=== PATIENT | female | born 1980 | race Caucasian/White ===

== ENCOUNTER 2016-04-04 04:34 | Emergency (ER) | payer MEDICAID ==
[~2016-04-04] VITALS: Ht 160 cm; Wt 81.2 kg
[~2016-04-04 04:34] MED LIST: ACET-461 PO; ACHD5005 PO; AGM875T PO; ALBU17AE23 INH; ALBU2.5V52 INH; ALPR-557 PO; ALPR0.5T PO; AMIT100T2 PO; AMIT50TA3 PO; AZIT-21 PO; AZIT250T PO; BACL10TA PO; BCL10T PO; BENZ200C25 PO; BSP10T PO; BUDE6HFA INH; CLON0.5T25 PO; CLON1TAB36 PO; CLON2TAB16 PO; CPR500T PO; CYCL10TA9 PO; DEXT118L43 PO; DILT120C PO; DILT120T11 PO; DIPH50CA PO; DOCU100C37 PO; EPIN0.3P3 IM; FAMO-119 PO; GFN600TCR PO; HYDR-1231 PO; HYDR-3714 PO; HYDR-3816 PO; IBP600T1 PO; IBUP-1773 PO; LISI-552 PO; METF1000 PO; METH4TAB PO; METO10TA3 PO; METR500T PO; MMT17NA NSEACH; MNTL10T PO; MONT10TA24 PO; NITR-65 PO; OMEP40CA36 PO; ONDA8TAB9 PO; ONDN4T PO; OXYC-272 PO; PRD10T PO; PRD20T PO; PRED10TA PO; PROM25SU10 PR; PROM25SU10 RC; SERT100T8 PO; SERT50TA PO; SIME80TA16 PO; TIOT4MIS2 IH; TPR100T PO; TRAM50TA2 PO; Throat Lozenges MT; [UNRECOGNIZED DRUG - OTHER] PO
[2016-04-04] MEDS ORDERED: RT-ALBUTEROL SULF 2.5 MG/3 ML PRE-MIX VIAL ONE (04:36)
[2016-04-04] MEDS ORDERED: DEXAMETHASONE PF 10 MG/ML (DECADRON) VIAL ONE (04:36)
--- OUTSIDE RECORDS SUMMARY | 2016-04-04 04:40 | XMS REPORT | Continuity of Care Document ---
Author Author [facility] Organization [facility] Address Unknown Phone Unavailable Care Team Providers Care Physician Locums Urgent Care Name Role Phone PCP Unavailable Source Comments Some departments are not documenting in the electronic medical record. If you do not see the information that you expected, contact Release of Information in the Health Information Management department at [phone] for further assistance in locating additional records.[facility] Active Allergies and Adverse Reactions Allergen Noted Date Severity Reactions Comments Codeine 02/20/2015 Low PALPITATIONS Valium 02/20/2015 Medium RASH Current Medications Prescription Sig. Disp. Refills Start End Date Status Date metFORMIN (GLUCOPHAGE) Take 1,000 mg by mouth Active 1,000 mg tablet twice daily with meals. sertraline (ZOLOFT) 100 Take 100 mg by mouth at Active mg tablet bedtime daily. amitriptyline (ELAVIL) Take 100 mg by mouth at Active 100 mg tablet bedtime daily. diltiazem XR (DILTIA XT) Take 120 mg by mouth Active 120 mg capsule daily. montelukast (SINGULAIR) Take 10 mg by mouth Active 10 mg tablet daily. baclofen (LIORESAL) 10 mg Take 10 mg by mouth three Active tablet times daily. clonazePAM (KLONOPIN) 0.5 Take 0.5 mg by mouth Active mg tablet three times daily. budesonide/formoterol Inhale 2 Puffs by mouth Active (SYMBICORT) 160/4.5 mcg twice daily. HFAA inhalation azithromycin (ZITHROMAX) Take 250 mg by mouth Active 250 mg tablet daily. Z-SAWYER: Take 2 tabs by mouth on day 1, followed by 1 tab by mouth daily on days 2-5. PREDNISONE PO Take 40 mg by mouth. Active Active Problems Problem Noted Date Blurry vision, right eye 02/20/2015 Last Assessment & Plan: No shreya abnormalities noted reassured patient Social History Tobacco Use Types Packs/Day Years Used Date Never Smoker Smokeless Tobacco: Never Used Alcohol Use Drinks/Week oz/Week Comments Yes Rarely Last Filed Vital Signs Vital Sign Reading Time Taken Blood Pressure 168/118 02/20/2015 8:56 AM [employer] Pulse 91 02/20/2015 8:56 AM [employer] Temperature - - Respiratory Rate - - Height 1.6 m (5' 3") 02/20/2015 8:56 AM IN[employer]IATE Weight 76.204 kg (168 lb) 02/20/2015 8:56 AM IN[employer]ATIONS [employer]IATE Body Mass Index 29.77 02/20/2015 8:56 AM IN[employer]ATE Oxygen Saturation - - Plan of Care Health Maintenance Due Date Last Done Comments Physical (Comprehensive) 1988 Exam Pertussis Vaccine 1992 Tetanus Vaccine 1998 Cervical Cancer Screening 2002 Influenza Vaccine 11/29/2015 Results from Last 3 Months Not on file
[2016-04-04] MEDS ORDERED: RT-ALBUTEROL SULF 2.5 MG/3 ML PRE-MIX VIAL INH STA (04:42)
[2016-04-04] MEDS ORDERED: DEXAMETHASONE PF 10 MG/ML (DECADRON) VIAL INH STA (04:42)
--- NOTE | 2016-04-04 04:57 | ED Cough/URI ---
General Chief Complaint: Respiratory Problems Stated Complaint: SOA Source: patient Exam Limitations: no limitations History of Present Illness Time seen by provider: 04:37 Initial Comments Here with report of difficulty breathing. Patient has vocal cord dysfunction that sometimes comes on on its own. She states that she felt chest tightness tonight and had some stridor typical for her vocal cord dysfunction while she was at work. Usually she can take a Xanax and go to sleep and that solves the problem. Tonight she was at work when this happened and was unable to do that. She is hoping that we can help a little with the chest tightness and stridor so that she can get home and take her medicine. No report of recent illness. Timing/Duration: just prior to arrival, constant Severity/Quality: dry cough Prior Episodes/Possible Cause: occasional episodes Modifying Factors: Worse With Coughing Associated Symptoms: cough, shortness of breath Allergies and Home Medications Allergies Coded Allergies: diazepam (Unverified Allergy, Intermediate, rash, 01/03/15) codeine (Unverified Adverse Reaction, Intermediate, HEART PALPATATIONS, ) Home Medications 240 MG PO DAILY (Reported) 1 EA LOZG #30 1 EA MT Q3H PRN PRN SORE THROAT Prescribed by: DALTON MERINO on 06/14/15925 Albuterol 17 Gm Aerosol 2 PUFF INH Q4H PRN PRN SHORTNESS OF BREATH (Reported) Albuterol Sulfate 2.5 Mg/3 Ml Nebu 2.5 MG INH Q4H PRN PRN SHORTNESS OF BREATH ( Reported) Alprazolam 0.5 Mg Tab 0.5 MG PO Q4H PRN PRN ANXIETY (Reported) Amitriptyline Hcl 100 Mg Tablet 50 MG PO HS (Reported) take 1/2 of 100mg tab Baclofen 10 Mg Tab 10 MG PO TID (Reported) Budesonide/Formoterol Fumarate 1 Inhaler Aero 2 PUFF INH BID (Reported) Clonazepam 0.5 Mg Tab.rapdis 0.5 MG PO TID (Reported) Diphenhydramine Hcl 50 Mg Capsule 50 MG PO Q4H PRN PRN ALLERGIES (Reported) Docusate Sodium 100 Mg Capsule #40 100 MG PO BID PRN PRN CONSTIPATION Prescribed by: DALTON MERINO on 06/14/15925 Hydrocodone/Acetaminophen 1 Each Tablet #50 1-2 EA PO Q6H PRN PRN PAIN Prescribed by: DALTON MERINO on 06/14/15925 Ibuprofen 600 Mg Tablet #80 600 MG PO Q6H PRN PRN PAIN Prescribed by: DALTON MERINO on 06/14/15925 Lisinopril 20 Mg Tablet 20 MG PO DAILY (Reported) Metformin HCl 1,000 Mg Tablet 1,000 MG PO DAILY (Reported) Mometasone Furoate 17 Gm Naspr 2 SPRAYS NSEACH BID (Reported) Montelukast Sodium 10 Mg Tablet 10 MG PO HS (Reported) Prednisone 20 Mg Tab #6 40 MG PO DAILY Prescribed by: SHAWN JAIME on 09/17/15 1508 Sertraline Hcl 100 Mg Tablet 100 MG PO HS (Reported) Simethicone 80 Mg Tab.chew #40 40 MG PO TID PRN PRN INDIGESTION Prescribed by: DALTON MERINO on 06/14/15925 Tiotropium [place] 4 Gm Mist.inhal 1 PUFF IH DAILY (Reported) Constitutional: see HPINo chills, No fever EENTM: hoarseness see HPINo nose congestion Respiratory: see HPI cough short of breath stridor other (chest tightness) Cardiovascular: no symptoms reported Gastrointestinal: no symptoms reported Psychiatric/Neurological: See HPI AnxietyDenies Weakness Past Cbnoqvt-Dnnkxe-Ifxvmd Hx Patient Social History Alcohol Use: Denies Use Recreational Drug Use: No Smoking Status: Never a Smoker 2nd Hand Smoke Exposure: Yes Recent Foreign Travel: No Contact w/Someone Who Travel: No Recent Hopitalizations: No Immunizations Up To Date Tetanus Booster (TDap): Less than 5yrs PED Vaccines UTD: No Date of Pneumonia Vaccine: May 27, 2011 Date of Influenza Vaccine: Nov 28, 2014 Seasonal Allergies Seasonal Allergies: Yes Surgeries HX Surgeries: Yes (LEFT ACHILLES TENDON LENGTHENING X 2, LEFT TIBIA FX; HYST/ BSO 06/14/15) Surgeries: Appendectomy, Gallbladder, Hysterectomy, Oophorectomy, Orthopedic, Tubal Ligation Respiratory Hx Respiratory Disorders: Yes ("VOCAL CORD DYSFUNCTION") Respiratory Disorders: Asthma Cardiovascular Hx Cardiac Disorders: No Cardiac Disorders: Heart Murmur Neurological Hx Neurological Disorders: Yes (MIGRAINES WITH TIA SYMPTOMS) Neurological Disorders: Brain Tumor, Cerebral Palsy, Headaches /Migraines Reproductive System Hx Reproductive Disorders: No Sexually Transmitted Disease: No HIV/AIDS: No Female Reproductive Disorders: Denies SHINGLES ROOFER HELPER History: Hysterectomy, Tubal Ligation Genitourinary Hx Genitourinary Disorders: No Gastrointestinal Hx Gastrointestinal Disorders: Yes Gastrointestinal Disorders: Ulcer Musculoskeletal Hx Musculoskeletal Disorders: Yes (CEREBRAL PALSY) Endocrine Hx Endocrine Disorders: No (PRE-DIABETES) Endocrine Disorders: Diabetes, Non-Insulin dep HEENT HX ENT Disorders: Yes ("VOCAL CORD DYSFUNCTION") Hearing Impairment: Denies Cancer Hx Cancer: No Psychosocial Hx Psychiatric Problems: Yes Behavioral Health Disorders: Anxiety, Depression Integumentary HX Skin/Integumentary Disorder: No Blood Transfusions Hx Blood Disorders: No Adverse Reaction to a Blood Tr: No (has not ever had a transfusion) Family Medical History Significant Family History: Asthma, Cancer, Diabetes, Hypertension Family Medial History: Cancer 19 FATHER, Onset:60 years & older (Colon cancer) G8 SISTER, Onset:15's - 20 (Hksj1sw) G8 SISTER, Onset:15's - 20 (Cervical cancer) Cancer of colon 19 FATHER, Onset:60 years & older Cataract 19 FATHER, Onset:60 years & older 19 MOTHER, Onset:40's - 50 Family history: Arthritis 19 MOTHER, Onset:25's - 30 Family history: Asthma G8 SISTER, Onset:40's - 50 Family history: Cardiovascular disease 19 MOTHER, Onset:50's - 60 Family history: Diabetes mellitus 19 FATHER, Onset:60 years & older 19 MOTHER, Onset:40's - 50 G8 SISTER, Onset:15's - 20 Family history: Hypertension 19 FATHER, Onset:40's - 50 19 MOTHER, Onset:50's - 60 Hypercholesterolemia 19 FATHER, Onset:50's - 60 19 MOTHER, Onset:50's - 60 Physical Exam Vital Signs Capillary Refill : General Appearance: WD/WN no apparent distress HEENT: PERRL/EOMI pharynx normal Neck: full range of motion supple Respiratory: stridor (vocal cord dysfunction) inspiration other (lungs otherwise clear bilaterally) Cardiovascular: regular rate, rhythm no murmur Gastrointestinal: non tender soft Neurologic/Psychiatric: alert oriented x 3 Skin: normal color warm/dry Progress/Results/Core Measures Results/Orders My Orders Orders-MAHESH LUNDBERG MD Albuterol Pre-Mix Nebs (Rt) (Proventil P (04/04/16 04:42) Dexamethasone Pf Injection (Decadron Pf (04/04/16 04:42) Svn Sm Volume Nebulizer Rt-Rfs (04/04/16 04:42) Dexamethasone Pf Injection (Decadron Pf (04/04/16 04:36) Albuterol Pre-Mix Nebs (Rt) (Proventil P (04/04/16 04:36) Progress Note : Progress Note Seen and evaluated. Albuterol treatment and Decadron 10 mg inhaled per nebulizer treatment. 0454: Much better after treatments. States that she feels like she would feel a safely home and take her other medicines. Tolerating by mouth fluids without difficulty. Discharged home with return precautions. Patient verbalize understanding instructions and agreement with plan. Departure Impression Impression: Primary Impression: Vocal cord dysfunction Disposition: HOME, SELF-CARE Condition: Improved Departure-Patient Inst. Decision time for Depature: 04:57 Referrals: [facility] (PCP) Primary Care Physician GUILLE DELANEY DO (Family) Primary Care Physician Patient Instructions: Vocal Cord Dysfunction Add. Discharge Instructions: All discharge instructions reviewed with patient and/or family. Voiced understanding. Use painting exercises and calming measures to reduce vocal cord spasm and dysfunction. Take medicines as previously prescribed. Follow-up with your DrGhazala in a few days for recheck. Return for worse pain, fever, vomiting, weakness, breathing problems or other concerns as needed. MAHESH LUNDBERG MD Apr 04, 2016 04:57
[2016-04-04 05:02] VITALS: BP 130/99
== END 2016-04-04 05:02 | disposition home or self-care (01) ==
LOC: EDUNIT# 04:34 → ER 04:35
DX: J38.3 Other diseases of vocal cords (principal); R07.89 Other chest pain
CPT/HCPCS: 94640

== ENCOUNTER 2016-06-04 17:29 | Emergency (ER) | payer MEDICAID ==
[~2016-06-04] VITALS: Ht 160 cm; Wt 78.5 kg
[2016-06-04] MEDS ORDERED: diphenhydrAMINE 50 MG/ML INJ (BENADRYL) IV STA (17:37)
[2016-06-04] MEDS ORDERED: RT-SODIUM CHL INHALATION 3 ML VIAL IH ONE (17:45)
[2016-06-04 17:59] LABS: BASOPHILS % (AUTO) 0 % (0-10); EOSINOPHILS % (AUTO) 0 % (0-10); LYMPHOCYTES # (AUTO) 1.1 X 10^3 (1.0-4.0); LYMPHOCYTES % (AUTO) 7 % (12-44); MEAN CORPUSCULAR HEMOGLOBIN 30 PG (25-34); MEAN CORPUSCULAR HGB CONC 36 G/DL (32-36); MEAN CORPUSCULAR VOLUME 83 FL (80-99); MEAN PLATELET VOLUME 11.9 FL (7.4-10.4); MONOCYTES # (AUTO) 0.2 X 10^3 (0.0-1.0); MONOCYTES % (AUTO) 1 % (0-12); NEUTROPHILS % (AUTO) 91 % (42-75); PLATELET COUNT 183 10^3/uL (130-400); RED BLOOD COUNT 4.99 10^6/uL (4.35-5.85); RED CELL DISTRIBUTION WIDTH 12.8 % (10.0-14.5); WHITE BLOOD COUNT 15.3 10^3/uL (4.3-11.0)
[2016-06-04 18:15] LABS: ANION GAP 15 MMOL/L (5-14); BLOOD UREA NITROGEN 9 MG/DL (7-18); BUN/CREATININE RATIO 10; CALCIUM 10.1 MG/DL (8.5-10.1); CARBON DIOXIDE 17 MMOL/L (21-32); CHLORIDE 106 MMOL/L (98-107); CREATININE SERUM 0.87 MG/DL (0.60-1.30); GFR ESTIMATED > 60; GLUCOSE 275 MG/DL (70-105); POTASSIUM 3.4 MMOL/L (3.6-5.0); SODIUM 138 MMOL/L (135-145)
[2016-06-04 18:29] LABS: LYMPHOCYTES % (MANUAL) 8 %; NEUTROPHILS % (MANUAL) 89 %
[2016-06-04 18:30] LABS: REACTIVE LYMPHOCYTES 2 %
--- NOTE | 2016-06-04 18:41 | ED Respiratory ---
General Chief Complaint: Respiratory Problems Stated Complaint: SOA Nursing Triage Note: PT CO OF SOA, STATES STARTED YESTERDAY HAS HX ASTHMA Source: patient, old records History of Present Illness Time seen by provider: 17:29 Initial Comments PT ARRIVES VIA POV FROM HOME C/O SHORTNESS OF BREATH SINCE YESTERDAY--PT WITH DX OF ASTHMA AND "VOCAL CORD DYSFUNCTION" PT STATES SHE HAS BEEN USING DUO NEB TREATMENTS EVERY 4 HOURS AND ALBUTEROL TREATMENTS EVERY 2 HOURS WITHOUT IMPROVEMENT, SINCE YESTERDAY. LAST DUO NEB TREATMENT WAS AT 1630 TOOK PREDNISONE 60 MG AT 0900 HAD TEMP 100.9 AND TOOK ADVIL 400 MG AT 1615 PT STATES SHE IS NOT USING ANY OTHER INHALERS OR OTHER MEDICATIONS IN NEBULIZER , BESIDES ALBUTEROL AND DUO NEB PT STATES SHE STOPPED TAKING METFORMIN FOR DIABETES 6 MONTHS AGO, BECAUSE BLOOD SUGARS AND HGB A1C WERE DOWN IN NORMAL RANGE. STATES IT ONLY RUNS HIGH WHEN SHE IS ON PREDNISONE. STATES BLOOD SUGAR HAS BEEN "HIGH" ALL DAY TODAY PT STATES SHE STOPPED TAKING BP MEDICATION (LISINOPRIL) 2 MONTHS AGO, BECAUSE IT WAS DROPPING TOO LOW. STATES BP HAS BEEN RUNNING IN NORMAL RANGE SINCE THEN. STATES BP ONLY GOES UP WHEN SHE IS HAVING DIFFICULTY BREATHING [facility]HAS AN APPOINTMENT NEXT WEEK FOR ROUTINE FOLLOW UP INTENSIVE CARE MEDICINE SPECIALIST: DR. DELANEY--HAS AN APPOINTMENT ON Thursday06/06/16 FOR ROUTINE EXAM Allergies and Home Medications Allergies Coded Allergies: diazepam (Unverified Allergy, Intermediate, rash, 01/03/15) codeine (Unverified Adverse Reaction, Intermediate, HEART PALPATATIONS, ) Home Medications 240 MG PO DAILY (Reported) 1 EA LOZG #30 1 EA MT Q3H PRN PRN SORE THROAT Prescribed by: DALTON MERINO on 06/14/15 0926 Albuterol 17 Gm Aerosol 2 PUFF INH Q4H PRN PRN SHORTNESS OF BREATH (Reported) Albuterol Sulfate 2.5 Mg/3 Ml Nebu 2.5 MG INH Q4H PRN PRN SHORTNESS OF BREATH ( Reported) Alprazolam 0.5 Mg Tab 0.5 MG PO Q4H PRN PRN ANXIETY (Reported) Amitriptyline Hcl 100 Mg Tablet 50 MG PO HS (Reported) take 1/2 of 100mg tab Baclofen 10 Mg Tab 10 MG PO TID (Reported) Budesonide/Formoterol Fumarate 1 Inhaler Aero 2 PUFF INH BID (Reported) Clonazepam 0.5 Mg Tab.rapdis 0.5 MG PO TID (Reported) Diphenhydramine Hcl 50 Mg Capsule 50 MG PO Q4H PRN PRN ALLERGIES (Reported) Docusate Sodium 100 Mg Capsule #40 100 MG PO BID PRN PRN CONSTIPATION Prescribed by: DALTON MERINO on 06/14/15925 Doxycycline Monohydrate 100 Mg Capsule #20 100 MG PO BID Prescribed by: PLACIDO REYNOLDS on 06/04/16 1850 Hydrocodone/Acetaminophen 1 Each Tablet #50 1-2 EA PO Q6H PRN PRN PAIN Prescribed by: DALTON MERINO on 06/14/15925 Ibuprofen 600 Mg Tablet #80 600 MG PO Q6H PRN PRN PAIN Prescribed by: DALTON MERINO on 06/14/15925 Lisinopril 20 Mg Tablet 20 MG PO DAILY (Reported) Metformin HCl 1,000 Mg Tablet 1,000 MG PO DAILY (Reported) Mometasone Furoate 17 Gm Naspr 2 SPRAYS NSEACH BID (Reported) Montelukast Sodium 10 Mg Tablet 10 MG PO HS (Reported) Prednisone 20 Mg Tab #6 40 MG PO DAILY Prescribed by: SHAWN JAIME on 09/17/15 1508 Sertraline Hcl 100 Mg Tablet 100 MG PO HS (Reported) Simethicone 80 Mg Tab.chew #40 40 MG PO TID PRN PRN INDIGESTION Prescribed by: DALTON MERINO on 06/14/15925 Tiotropium [place] 4 Gm Mist.inhal 1 PUFF IH DAILY (Reported) Constitutional: see HPI fever EENTM: no symptoms reported Respiratory: see HPINo cough, short of breath Cardiovascular: chest pain (CHEST TIGHTNESS) Gastrointestinal: no symptoms reported Genitourinary: no symptoms reported Musculoskeletal: no symptoms reported Skin: no symptoms reported Psychiatric/Neurological: Anxiety Hematologic/Lymphatic: No Symptoms Reported Past Zychkrv-Bmyapl-Lddsxy Hx Patient Social History Alcohol Use: Denies Use Recreational Drug Use: No Smoking Status: Never a Smoker 2nd Hand Smoke Exposure: Yes Recent Foreign Travel: No Contact w/Someone Who Travel: No Recent Infectious Disease Expo: No Recent Hopitalizations: No Immunizations Up To Date Tetanus Booster (TDap): Less than 5yrs PED Vaccines UTD: No Date of Pneumonia Vaccine: May 27, 2011 Date of Influenza Vaccine: Nov 28, 2014 Seasonal Allergies Seasonal Allergies: Yes Surgeries HX Surgeries: Yes (LEFT ACHILLES TENDON LENGTHENING X 2, LEFT TIBIA FX; HYST/ BSO 06/14/15) Surgeries: Appendectomy, Gallbladder, Hysterectomy, Oophorectomy, Orthopedic, Tubal Ligation Respiratory Hx Respiratory Disorders: Yes ("VOCAL CORD DYSFUNCTION") Respiratory Disorders: Asthma Cardiovascular Hx Cardiac Disorders: No Cardiac Disorders: Heart Murmur Neurological Hx Neurological Disorders: Yes (MIGRAINES WITH TIA SYMPTOMS) Neurological Disorders: Brain Tumor, Cerebral Palsy, Headaches /Migraines Reproductive System Hx Reproductive Disorders: No Sexually Transmitted Disease: No HIV/AIDS: No DENTAL RESIDENT History: Hysterectomy, Tubal Ligation Genitourinary Hx Genitourinary Disorders: No Gastrointestinal Hx Gastrointestinal Disorders: Yes Gastrointestinal Disorders: Ulcer Musculoskeletal Hx Musculoskeletal Disorders: Yes (CEREBRAL PALSY) Endocrine Hx Endocrine Disorders: Yes ("PRE-DIABETES") Endocrine Disorders: Diabetes, Non-Insulin dep HEENT HX ENT Disorders: Yes ("VOCAL CORD DYSFUNCTION") Hearing Impairment: Denies Cancer Hx Cancer: No Psychosocial Hx Psychiatric Problems: Yes Behavioral Health Disorders: Anxiety, Depression Integumentary HX Skin/Integumentary Disorder: No Blood Transfusions Hx Blood Disorders: No Adverse Reaction to a Blood Tr: No (has not ever had a transfusion) Family Medical History Significant Family History: Asthma, Cancer, Diabetes, Hypertension Family Medial History: Cancer 19 FATHER, Onset:60 years & older (Colon cancer) G8 SISTER, Onset:15's - ([id number]) G8 SISTER, Onset:15's - 20 (Cervical cancer) Cancer of colon 19 FATHER, Onset:60 years & older Cataract 19 FATHER, Onset:60 years & older 19 MOTHER, Onset:40's - 50 Family history: Arthritis 19 MOTHER, Onset:25's - 30 Family history: Asthma G8 SISTER, Onset:40's - 50 Family history: Cardiovascular disease 19 MOTHER, Onset:50's - 60 Family history: Diabetes mellitus 19 FATHER, Onset:60 years & older 19 MOTHER, Onset:40's - 50 G8 SISTER, Onset:15's - 20 Family history: Hypertension 19 FATHER, Onset:40's - 50 19 MOTHER, Onset:50's - 60 Hypercholesterolemia 19 FATHER, Onset:50's - 60 19 MOTHER, Onset:50's - 60 No Family History of: Abdominal aortic aneurysm Mccormick's disease Alcoholism Aphasia Chest pain Congenital heart disease Congestive heart failure Cystic fibrosis Dementia Dysphagia Family history: Allergy Family history: Alzheimer's disease Family history: Breast disease Family history: Coronary thrombosis Family history: Gastrointestinal disease Family history: Glaucoma Family history: Osteoporosis Family history: Thyroid disorder Headache Hearing loss Heart disease Hereditary disease History of - anemia History of - disorder History of - respiratory disease History of drug abuse Human immunodeficiency virus (HIV) seropositivity Infertile Kidney disease Malignant neoplasm of lung Myocardial infarction Not obtainable due to adoption Parkinson's disease Prostate cancer Psychotic disorder Seizure disorder Stroke Tuberculosis Visual impairment Physical Exam Vital Signs Vital Sign - Last 12Hours 06/04/16 06/04/16 17:38 17:52 Temp 98.4 Pulse 123 Resp 36 B/P 174/135 Pulse Ox 98 Capillary Refill : Less Than 3 Seconds General Appearance: WD/WN other (VERY ANXIOUS, HYPERVENTILATING, TALKS NON- STOP IN FULL SENTENCES IN A NORMAL VOICE) HEENT: PERRL/EOMI Neck: normal inspection Respiratory: normal breath soundsNo decreased breath sounds, No rales, No rhonchi, No stridor, No wheezing, other (LUNGS FULLY AERATED BILATERALLY. NO WHEEZING OR UPPER AIRWAY NOISE NOTED. PT HYPERVENTILATING. ) Cardiovascular: normal peripheral pulses regular rate, rhythm no edema no murmur Gastrointestinal: soft Extremities: normal inspection no pedal edema normal capillary refill Neurologic/Psychiatric: field support rep II-XII nml as tested no motor/sensory deficits alert oriented x 3 other (ANXIOUS, HYPERVENTILATING) Skin: normal color warm/dry Progress/Results/Core Measures Results/Orders Lab Results Laboratory Tests Test 06/04/16 17:55 06/04/16 18:20 Range/Units Anion Gap 15 H 5-14 MMOL/L BUN/Creatinine Ratio 10 Basophils # (Auto) 0.0 0.0-0.1 10^3/uL Basophils (%) (Auto) 0 0-10 % Blood Morphology Comment NORMAL Blood Urea Nitrogen 9 7-18 MG/DL Calcium Level 10.1 8.5-10.1 MG/DL Carbon Dioxide Level 17 L 21-32 MMOL/L Chloride Level 106 98-107 MMOL/L Creatinine 0.87 0.60-1.30 MG/DL Eosinophils # (Auto) 0.0 0.0-0.3 10^3/uL Eosinophils (%) (Auto) 0 0-10 % Estimat Glomerular Filtration Rate > 60 Glucose Level 275 H 70-105 MG/DL Hematocrit 41 35-52 % Hemoglobin 14.8 11.5-16.0 G/DL Lymphocytes # (Auto) 1.1 1.0-4.0 X 10^3 Lymphocytes % (Manual) 8 % Lymphocytes (%) (Auto) 7 L 12-44 % Mean Corpuscular Hemoglobin 30 25-34 PG Mean Corpuscular Hemoglobin Concent 36 32-36 G/DL Mean Corpuscular Volume 83 80-99 FL Mean Platelet Volume 11.9 H 7.4-10.4 FL Monocytes # (Auto) 0.2 0.0-1.0 X 10^3 Monocytes % (Manual) 1 % Monocytes (%) (Auto) 1 0-12 % Neutrophils # (Auto) 14.0 H 1.8-7.8 X 10^3 Neutrophils % (Manual) 89 % Neutrophils (%) (Auto) 91 H 42-75 % Platelet Count 183 130-400 10^3/uL Potassium Level 3.4 L 3.6-5.0 MMOL/L Reactive Lymphocytes 2 % Red Blood Count 4.99 4.35-5.85 10^6/uL Red Cell Distribution Width 12.8 10.0-14.5 % Serum Test, Qualitative NEGATIVE NEGATIVE Sodium Level 138 135-145 MMOL/L White Blood Count 15.3 H 4.3-11.0 10^3/uL Ur Tricyclic Antidepressants Screen NEGATIVE NEGATIVE Urine Amphetamines Screen NEGATIVE NEGATIVE Urine Barbiturates Screen NEGATIVE NEGATIVE Urine Benzodiazepines Screen NEGATIVE NEGATIVE Urine Cannabinoids Screen NEGATIVE NEGATIVE Urine Cocaine Screen NEGATIVE NEGATIVE Urine Methadone Screen NEGATIVE NEGATIVE Urine Methamphetamines Screen NEGATIVE NEGATIVE Urine Opiates Screen NEGATIVE NEGATIVE Urine Oxycodone Screen NEGATIVE NEGATIVE Urine Phencyclidine Screen NEGATIVE NEGATIVE Urine Propoxyphene Screen NEGATIVE NEGATIVE My Orders Orders-PLACIDO REYNOLDS DO Basic Metabolic Panel (06/04/16 17:37) Cbc With Automated Diff (06/04/16 17:37) Drug Screen Stat (Urine) (06/04/16 17:37) Hcg,Qualitative Serum (06/04/16 17:37) Saline Lock/Iv-Start (06/04/16 17:37) Monitor-Rhythm Ecg Trace Only (06/04/16 17:37) Sodium Chl Inhalation (Rt-Sodium Chl Inh (06/04/16 17:45) Rt Request For Service (06/04/16 17:37) Diphenhydramine Injection (Benadryl Inje (06/04/16 17:37) Svn Sm Volume Nebulizer Rt-Rfs (06/04/16 17:37) Manual Differential (06/04/16 17:55) Lorazepam Injection (Ativan Injection) (06/04/16 18:45) Enalaprilat Injection (Vasotec Injection (06/04/16 18:45) Medications Given in ED Vital Signs/I&O Vital Sign - Last 12Hours 06/04/16 06/04/16 06/04/16 17:38 17:52 19:15 Temp 98.4 98.4 Pulse 123 103 Resp 36 22 B/P 174/135 Pulse Ox 98 95 Blood Pressure Mean: 148 Progress Note : Progress Note SYMPTOMS IMPROVED WITH SALINE NEB TREATMENT AND BENADRYL, AND IS RESTING QUIETLY WHEN STAFF NOT IN ROOM PT THEN BEGAN TO HYPERVENTILATE WHEN I ENTERED ROOM AGAIN, AND PT APPEARS TO BE STIFFENING ARM WHEN BP IS BEING TAKEN AND BP UP AGAIN TO 160/122 GIVEN VASOTEC AND ATIVAN BP DOWN TO 156/102 PRIOR TO DISMISSAL O2 SATS REMAINED STABLE DURING ER STAY Departure Impression Impression: Primary Impression: Bronchitis Additional Impressions: Hyperventilation History of asthma Uncontrolled hypertension Uncontrolled diabetes mellitus Disposition: 01 HOME, SELF-CARE Condition: Improved Departure-Patient Inst. Referrals: GUILLE DELANEY DO [facility] (PCP/Family) Primary Care Physician Patient Instructions: Asthma, Adult (DC), Diabetes Diet , Diabetes Exchange Diet, Diabetes Type 2 (DC), High Blood Pressure in Adults Add. Discharge Instructions: DO NOT USE YOUR NEBULIZER TREATMENTS MORE THAN EVERY 4 HOURS CONTINUE YOUR ZYRTEC AND SINGULAIR PRESCRIBED KEEP YOUR APPOINTMENT WITH DR. DELANEY ON THURSDAY AND KEEP YOUR APPOINTMENT WITH [facility] NEXT WEEK SCHEDULED. RETURN TO ER IF WORSE All discharge instructions reviewed with patient and/or family. Voiced understanding. Scripts Doxycycline Monohydrate 100 Mg [id number] Mg PO BID #20 CAP Prov:PLACIDO REYNOLDS DO 06/04/16 PLACIDO REYNOLDS DO Jun 04, 2016 18:41 Referrals: GUILLE DELANEY DO [facility] (PCP/Family) Primary Care Physician Patient Instructions: Asthma, Adult (DC), Diabetes Diet , Diabetes Exchange Diet, Diabetes Type 2 (DC), High Blood Pressure in Adults Add. Discharge Instructions: DO NOT USE YOUR NEBULIZER TREATMENTS MORE THAN EVERY 4 HOURS CONTINUE YOUR ZYRTEC AND SINGULAIR PRESCRIBED KEEP YOUR APPOINTMENT WITH DR. DELANEY ON THURSDAY AND KEEP YOUR APPOINTMENT WITH [facility] NEXT WEEK SCHEDULED. RETURN TO ER IF WORSE All discharge instructions reviewed with patient and/or family. Voiced understanding. Scripts Doxycycline Monohydrate 100 Mg [id number] Mg PO BID #20 CAP Prov:PLACIDO REYNOLDS DO 06/04/16 PLACIDO REYNOLDS DO Jun 04, 2016 18:41
[2016-06-04] MEDS ORDERED: LORazepam INJ 2 MG/ML (ATIVAN) VIAL IVP ONE (18:45)
[2016-06-04] MEDS ORDERED: ENALAPRILAT 2.5 MG/2 ML (VASOTEC) VIAL IV ONE (18:45)
[2016-06-04] MEDS ORDERED: CEFD300C3 PO (18:47)
[2016-06-04] MEDS ORDERED: DOXY100C42 PO (18:50)
[2016-06-04 19:15] VITALS: BP 158/102
== END 2016-06-04 19:15 | disposition home or self-care (01) ==
LOC: EDUNIT# 17:29 → ER 17:30
DX: J40 Bronchitis, not specified as acute or chronic (principal); R06.4 Hyperventilation; E11.65 Type 2 diabetes mellitus with hyperglycemia; I16.0 Hypertensive urgency; J45.909 Unspecified asthma, uncomplicated; F41.9 Anxiety disorder, unspecified; G80.9 Cerebral palsy, unspecified; Z79.899 Other long term (current) drug therapy
CPT/HCPCS: 36415; 80048; 80306; 84703; 85007; 85027; 93041; 94640; 96374; 96375

== ENCOUNTER 2016-09-09 10:17 | Observation (INO) | payer MEDICAID ==
[~2016-09-09] VITALS: Ht 160 cm; Wt 78.7 kg
[2016-09-09] VITALS (8 sets, daily range): BP systolic 129–165; BP diastolic 84–105
[~2016-09-09 10:17] MED LIST changes: +CEFD300C3 PO; +DOXY100C42 PO
[2016-09-09] MEDS ORDERED: NS IV 1000 ML 1,000 ML IV ONE (10:26)
[2016-09-09] MEDS ORDERED: LORazepam INJ 2 MG/ML (ATIVAN) VIAL IVP ONE (10:30)
[2016-09-09] MEDS ORDERED: RT-ALBUTEROL/IPRATROPIUM 3 ML (DUONEB) VIAL INH ONE ×2 (10:30→11:15)
[2016-09-09] MEDS ORDERED: methylPREDNISolone 125 MG (Solu-MEDROL) VIAL IVP ONE (10:30)
[2016-09-09 10:31] LABS: BASOPHILS % (AUTO) 0 % (0-10); EOSINOPHILS # (AUTO) 0.3 10^3/uL (0.0-0.3); EOSINOPHILS % (AUTO) 2 % (0-10); LYMPHOCYTES # (AUTO) 3.5 X 10^3 (1.0-4.0); LYMPHOCYTES % (AUTO) 32 % (12-44); MEAN CORPUSCULAR HEMOGLOBIN 29 PG (25-34); MEAN CORPUSCULAR HGB CONC 35 G/DL (32-36); MEAN CORPUSCULAR VOLUME 84 FL (80-99); MEAN PLATELET VOLUME 11.3 FL (7.4-10.4); MONOCYTES # (AUTO) 0.5 X 10^3 (0.0-1.0); MONOCYTES % (AUTO) 4 % (0-12); NEUTROPHILS # (AUTO) 6.7 X 10^3 (1.8-7.8); NEUTROPHILS % (AUTO) 61 % (42-75); PLATELET COUNT 191 10^3/uL (130-400); RED BLOOD COUNT 5.03 10^6/uL (4.35-5.85); RED CELL DISTRIBUTION WIDTH 12.6 % (10.0-14.5)
[2016-09-09 10:52] LABS: ANION GAP 11 MMOL/L (5-14); BLOOD UREA NITROGEN 6 MG/DL (7-18); BUN/CREATININE RATIO 8 (0-20); CALCIUM 9.8 MG/DL (8.5-10.1); CARBON DIOXIDE 22 MMOL/L (21-32); CHLORIDE 106 MMOL/L (98-107); CREATININE SERUM 0.78 MG/DL (0.60-1.30); GFR ESTIMATED > 60; GLUCOSE 192 MG/DL (70-105); POTASSIUM 3.4 MMOL/L (3.6-5.0); SODIUM 139 MMOL/L (135-145)
--- NOTE | 2016-09-09 11:04 | Diagnostic Imaging Report ---
EXAMINATION: Portable upright radiograph of the chest. INDICATION: Shortness of breath. FINDINGS: The lungs are clear. The heart size is normal. No effusion or pneumothorax. The mediastinum and eric appear unremarkable. IMPRESSION: Unremarkable exam. Dictated by: Dictated on workstation # [id number]
[2016-09-09] MEDS ORDERED: diphenhydrAMINE 50 MG/ML INJ (BENADRYL) IVP ONE (11:15)
--- NOTE | 2016-09-09 11:55 | ED Respiratory ---
General Chief Complaint: Respiratory Problems Stated Complaint: ASTHMA,SOA Nursing Triage Note: PT C/O SOA AND WHEEZING ONSET THIS AM. Source: patient Exam Limitations: no limitations History of Present Illness Time seen by provider: 10:21 Initial Comments This 36-year-old woman with significant asthma presents to the emergency room with acute exacerbation. She reports being exposed to cigarette smoke [place] the drive[place]in theater 2 nights ago. She then accidentally sprayed some air freshener near her face today. She believes the combination of these exposures has caused a severe exacerbation. She has very tight wheezing upon arrival. She also has a component of vocal cord dysfunction. She has taken 2 DuoNeb treatments at home this morning but they do not last long. She has appointment with Dr. Alvarado later this week but felt she could not wait. Allergies and Home Medications Allergies Coded Allergies: diazepam (Unverified Allergy, Intermediate, rash, 01/03/15) codeine (Unverified Adverse Reaction, Intermediate, HEART PALPATATIONS, ) Home Medications Albuterol 17 Gm Aerosol, 2 PUFF INH Q4H PRN for SHORTNESS OF BREATH, (Reported) Albuterol Sulfate 2.5 Mg/3 Ml Nebu, 2.5 MG INH Q4H PRN for SHORTNESS OF BREATH, (Reported) Alprazolam 0.5 Mg Tab, 0.5 MG PO Q4H PRN for ANXIETY, (Reported) Amitriptyline Hcl 100 Mg Tablet, 50 MG PO HS, (Reported) take 1/2 of 100mg tab Baclofen 10 Mg Tab, 10 MG PO TID, (Reported) Budesonide/Formoterol Fumarate 1 Inhaler Aero, 2 PUFF INH BID, (Reported) Clonazepam 0.5 Mg Tab.rapdis, 0.5 MG PO TID, (Reported) Diphenhydramine Hcl 50 Mg Capsule, 50 MG PO Q4H PRN for ALLERGIES, (Reported) Docusate Sodium 100 Mg Capsule, 100 MG PO BID PRN for CONSTIPATION, #40 Prescribed by: DALTON MERINO on 06/14/15 0926 Doxycycline Monohydrate 100 Mg Capsule, 100 MG PO BID, #20 Prescribed by: PLACIDO REYNOLDS on 06/04/16 1850 Hydrocodone/Acetaminophen 1 Each Tablet, 1-2 EA PO Q6H PRN for PAIN, #50 Prescribed by: DALTON MERINO on 06/14/15925 Ibuprofen 600 Mg Tablet, 600 MG PO Q6H PRN for PAIN, #80 Prescribed by: DALTON MERINO on 06/14/15925 Lisinopril 20 Mg Tablet, 20 MG PO DAILY, (Reported) Metformin HCl 1,000 Mg Tablet, 1,000 MG PO DAILY, (Reported) Mometasone Furoate 17 Gm Naspr, 2 SPRAYS NSEACH BID, (Reported) Montelukast Sodium 10 Mg Tablet, 10 MG PO HS, (Reported) Prednisone 20 Mg Tab, 40 MG PO DAILY, #6 Prescribed by: SHAWN JAIME on 09/17/15 1508 Sertraline Hcl 100 Mg Tablet, 100 MG PO HS, (Reported) Simethicone 80 Mg Tab.chew, 40 MG PO TID PRN for INDIGESTION, #40 Prescribed by: DALTON MERINO on 06/14/15925 Tiotropium [place] 4 Gm Mist.inhal, 1 PUFF IH DAILY, (Reported) [Tazaic] , 240 MG PO DAILY, (Reported) [Throat Lozenges] 1 EA LOZG, 1 EA MT Q3H PRN for SORE THROAT, #30 Prescribed by: DALTON MERINO on 06/14/15925 Constitutional: no symptoms reported EENTM: see HPI Respiratory: see HPI Cardiovascular: no symptoms reported Gastrointestinal: no symptoms reported Genitourinary: no symptoms reported Musculoskeletal: no symptoms reported Skin: no symptoms reported Psychiatric/Neurological: No Symptoms Reported Hematologic/Lymphatic: No Symptoms Reported Past Jcwycut-Accpyt-Cnimvm Hx Patient Social History Alcohol Use: Denies Use Recreational Drug Use: No Smoking Status: Never a Smoker 2nd Hand Smoke Exposure: Yes Recent Foreign Travel: No Contact w/Someone Who Travel: No Recent Infectious Disease Expo: No Recent Hopitalizations: No Immunizations Up To Date Tetanus Booster (TDap): Less than 5yrs PED Vaccines UTD: No Date of Pneumonia Vaccine: May 27, 2011 Date of Influenza Vaccine: Nov 28, 2014 Seasonal Allergies Seasonal Allergies: Yes Surgeries HX Surgeries: Yes (LEFT ACHILLES TENDON LENGTHENING X 2, LEFT TIBIA FX; HYST/ BSO 06/14/15) Surgeries: Appendectomy, Gallbladder, Hysterectomy, Oophorectomy, Orthopedic, Tubal Ligation Respiratory Hx Respiratory Disorders: Yes ("VOCAL CORD DYSFUNCTION") Respiratory Disorders: Asthma Cardiovascular Hx Cardiac Disorders: No Cardiac Disorders: Heart Murmur Neurological Hx Neurological Disorders: Yes (MIGRAINES WITH TIA SYMPTOMS) Neurological Disorders: Brain Tumor, Cerebral Palsy, Headaches /Migraines Reproductive System Hx Reproductive Disorders: No Sexually Transmitted Disease: No HIV/AIDS: No Female 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, Tubal Ligation Genitourinary Hx Genitourinary Disorders: No Gastrointestinal Hx Gastrointestinal Disorders: Yes Gastrointestinal Disorders: Ulcer Musculoskeletal Hx Musculoskeletal Disorders: Yes (CEREBRAL PALSY) Endocrine Hx Endocrine Disorders: Yes ("PRE-DIABETES") Endocrine Disorders: Diabetes, Non-Insulin dep HEENT HX ENT Disorders: Yes ("VOCAL CORD DYSFUNCTION") Hearing Impairment: Denies Cancer Hx Cancer: No Psychosocial Hx Psychiatric Problems: Yes Behavioral Health Disorders: Anxiety, Depression Integumentary HX Skin/Integumentary Disorder: No Blood Transfusions Hx Blood Disorders: No Adverse Reaction to a Blood Tr: No (has not ever had a transfusion) Family Medical History Significant Family History: Asthma, Cancer, Diabetes, Hypertension Family Medial History: Cancer 19 FATHER, Onset:60 years & older (Colon cancer) G8 SISTER, Onset:15's - 20 ([id number]) G8 SISTER, Onset:15's - 20 (Cervical cancer) Cancer of colon 19 FATHER, Onset:60 years & older Cataract 19 FATHER, Onset:60 years & older 19 MOTHER, Onset:40's - 50 Family history: Arthritis 19 MOTHER, Onset:25's - 30 Family history: Asthma G8 SISTER, Onset:40's - 50 Family history: Cardiovascular disease 19 MOTHER, Onset:50's - 60 Family history: Diabetes mellitus 19 FATHER, Onset:60 years & older 19 MOTHER, Onset:40's - 50 G8 SISTER, Onset:15's - 20 Family history: Hypertension 19 FATHER, Onset:40's - 50 19 MOTHER, Onset:50's - 60 Hypercholesterolemia 19 FATHER, Onset:50's - 60 19 MOTHER, Onset:50's - 60 No Family History of: Abdominal aortic aneurysm Raymond's disease Alcoholism Aphasia Chest pain Congenital heart disease Congestive heart failure Cystic fibrosis Dementia Dysphagia Family history: Allergy Family history: Alzheimer's disease Family history: Breast disease Family history: Coronary thrombosis Family history: Gastrointestinal disease Family history: Glaucoma Family history: Osteoporosis Family history: Thyroid disorder Headache Hearing loss Heart disease Hereditary disease History of - anemia History of - disorder History of - respiratory disease History of drug abuse Human immunodeficiency virus (HIV) seropositivity Infertile Kidney disease Malignant neoplasm of lung Myocardial infarction Not obtainable due to adoption Parkinson's disease Prostate cancer Psychotic disorder Seizure disorder Stroke Tuberculosis Visual impairment Physical Exam Vital Signs Vital Sign - Last 12Hours 09/09/16 09/09/16 10:20 10:35 Temp 97.6 Pulse 113 Resp 30 B/P (MAP) 157/90 Pulse Ox 98 O2 Delivery Room Air O2 Flow Rate 3.00 Capillary Refill : Less Than 3 Seconds General Appearance: WD/WN, mild distress HEENT: PERRL/EOMI, normal ENT inspection Neck: normal inspection Respiratory: no respiratory distress, no accessory muscle use, wheezing (tight) Cardiovascular: no edema, no murmur, tachycardia Gastrointestinal: non tender, soft Extremities: normal inspection, no pedal edema, no calf tenderness, other ( negative Bryon) 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, no motor/sensory deficits, alert, oriented x 3, other (mildly anxious) Skin: normal color, warm/dry Progress/Results/Core Measures Results/Orders Lab Results Laboratory Tests Test 09/09/16 10:25 Range/Units White Blood Count 11.0 4.3-11.0 10^3/uL Red Blood Count 5.03 4.35-5.85 10^6/uL Hemoglobin 14.6 11.5-16.0 G/DL Hematocrit 42 35-52 % Mean Corpuscular Volume 84 80-99 FL Mean Corpuscular Hemoglobin 29 25-34 PG Mean Corpuscular Hemoglobin Concent 35 32-36 G/DL Red Cell Distribution Width 12.6 10.0-14.5 % Platelet Count 191 130-400 10^3/uL Mean Platelet Volume 11.3 H 7.4-10.4 FL Neutrophils (%) (Auto) 61 42-75 % Lymphocytes (%) (Auto) 32 12-44 % Monocytes (%) (Auto) 4 0-12 % Eosinophils (%) (Auto) 2 0-10 % Basophils (%) (Auto) 0 0-10 % Neutrophils # (Auto) 6.7 1.8-7.8 X 10^3 Lymphocytes # (Auto) 3.5 1.0-4.0 X 10^3 Monocytes # (Auto) 0.5 0.0-1.0 X 10^3 Eosinophils # (Auto) 0.3 0.0-0.3 10^3/uL Basophils # (Auto) 0.0 0.0-0.1 10^3/uL Sodium Level 139 135-145 MMOL/L Potassium Level 3.4 L 3.6-5.0 MMOL/L Chloride Level 106 98-107 MMOL/L Carbon Dioxide Level 22 21-32 MMOL/L Anion Gap 11 5-14 MMOL/L Blood Urea Nitrogen 6 L 7-18 MG/DL Creatinine 0.78 0.60-1.30 MG/DL Estimat Glomerular Filtration Rate > 60 BUN/Creatinine Ratio 8 0-20 Glucose Level 192 H 70-105 MG/DL Calcium Level 9.8 8.5-10.1 MG/DL My Orders Orders - DERRICK TRIANA MD Basic Metabolic Panel (09/09/16 10:23) Cbc With Automated Diff (09/09/16 10:23) Saline Lock/Iv-Start (09/09/16 10:23) O2 (09/09/16 10:23) Monitor-Rhythm Ecg Trace Only (09/09/16 10:23) Chest 1 View, Ap/Pa Only (09/09/16 10:23) Methylprednisolone Sod Succ (Solu-Medrol (09/09/16 10:30) Albuterol/Ipra Inhalation Soln (Duoneb I (09/09/16 10:30) Svn Sm Volume Nebulizer Rt-Rfs (09/09/16 10:23) Ns Iv 1000 Ml (Sodium Chloride 0.9%) (09/09/16 10:26) Lorazepam Injection (Ativan Injection) (09/09/16 10:30) Albuterol/Ipra Inhalation Soln (Duoneb I (09/09/16 11:15) Svn Sm Volume Nebulizer Rt-Rfs (09/09/16 11:09) Diphenhydramine Injection (Benadryl Inje (09/09/16 11:15) Medications Given in ED Current Medications Medications Dose Ordered Sig/Ca Route Start Time Stop Time Status Last Admin Dose Admin Albuterol/ Ipratropium 3 ml ONCE ONCE INH 09/09/16 10:30 09/09/16 10:31 DC 09/09/16 10:43 3 ML Albuterol/ Ipratropium 3 ml ONCE ONCE INH 09/09/16 11:15 09/09/16 11:16 DC 09/09/16 11:20 3 ML Diphenhydramine HCl 25 mg ONCE ONCE IVP 09/09/16 11:15 09/09/16 11:16 DC 09/09/16 11:40 25 MG Lorazepam 1 mg ONCE ONCE IVP 09/09/16 10:30 09/09/16 10:31 DC 09/09/16 10:40 1 MG Methylprednisolone Sodium Succinate 125 mg ONCE ONCE IVP 09/09/16 10:30 09/09/16 10:31 DC 09/09/16 10:40 125 MG Sodium Chloride 1,000 ml @ 0 mls/hr Q0M ONCE IV 09/09/16 10:26 09/09/16 10:27 DC 09/09/16 10:40 0 MLS/HR Vital Signs/I&O Vital Sign - Last 12Hours 09/09/16 09/09/16 09/09/16 10:20 10:35 11:23 Temp 97.6 Pulse 113 Resp 30 B/P (MAP) 157/90 Pulse Ox 98 100 98 O2 Delivery Room Air Nasal Cannula Nasal Cannula O2 Flow Rate 3.00 3.00 Blood Pressure Mean: 112 Progress Note : Progress Note Patient was treated with IV fluids, Solu-Medrol, DuoNeb 2, Ativan, and Benadryl. Wheezing had pretty well resolved but she still complained of chest tightness. She reports her breathing treatments have not been lasting long and she is very concerned about rebound and needing to return. Case was reviewed with Dr. Alvarado who is agreeable to admission. Case was reviewed with Dr. Vela who is also agreeable. Patient was admitted for observation and further treatment of asthma exacerbation. Diagnostic Imaging Diagonstic Imaging: Xray Plain Films/CT/US/NM/MRI: chest Comments Chest x-ray viewed by me and report reviewed. See report below: NAME: ROSAS BENITEZ [facility] REC#: [id number] PT STATUS: REG ER : 1980 PHYSICIAN: DERRICK TRIANA MD ADMIT DATE: 09/09/16/ER Signed Date of Exam:09/09/16 CHEST 1 VIEW, AP/PA ONLY EXAMINATION: Portable upright radiograph of the chest. INDICATION: Shortness of breath. FINDINGS: The lungs are clear. The heart size is normal. No effusion or pneumothorax. The mediastinum and eric appear unremarkable. IMPRESSION: Unremarkable exam. Dictated by: Dictated on workstation # [id number] Dict: 09/09/16 1053 Trans: 09/09/16 1120 [id number] Interpreted by: ESTEVAN JARRETT MD Electronically signed by: ESTEVAN JARRETT MD 09/09/16 1120 Departure Communication Time/Spoke to Admitting Phy: 12:[address] Vela Time/Spoke to Consulting Physi: 12:05 Communication/Consulting Dr. Alvarado Impression Impression: Primary Impression: Acute asthma exacerbation Qualified Codes: J45.901 - Unspecified asthma with (acute) exacerbation Additional Impression: Anxiety Disposition: 09 ADMITTED INPATIENT Condition: Improved Decision to Admit Reason: Admit from ER (General) Decision to Admit/Date: Sep 09, 2016 Time/Decision to Admit Time: 12:05 Departure-Patient Inst. Referrals: [facility] (PCP/Family) Primary Care Physician DERRICK TRIANA MD Sep 09, 2016 11:55
[2016-09-09] MEDS ORDERED: MONT10TA24 PO (13:32)
[2016-09-09] MEDS ORDERED: IPRA3AMP IH (13:32)
[2016-09-09] MEDS ORDERED: MMT17NA NSEACH (13:32)
[2016-09-09] MEDS ORDERED: BACL10TA PO (13:32)
[2016-09-09] MEDS ORDERED: CLON0.5T3 PO ×2 (13:32)
[2016-09-09] MEDS ORDERED: CETI10TA17 PO (13:32)
[2016-09-09] MEDS ORDERED: IBUP-2055 PO (13:32)
[2016-09-09] MEDS ORDERED: SERT100T8 PO (13:32)
[2016-09-09] MEDS ORDERED: ACET-93 PO (13:32)
[2016-09-09] MEDS: NS W/KCL 20 MEQ/L 1,000 ML IV SCH (13:38)
[2016-09-09] MEDS: RT-ALBUTEROL/IPRATROPIUM 3 ML (DUONEB) VIAL IH SCH ×3 (13:54→21:41)
[2016-09-09] MEDS: LORazepam 1 MG (ATIVAN) TAB PO PRN ×2 (14:43→20:50)
[2016-09-09] MEDS: inSUlin (REGULAR) HUMAN 1 UNIT/0.01 ML (CHARGE PER UNIT) SC SCH ×2 (14:44→20:01)
[2016-09-09] MEDS ORDERED: ACETAMINOPHEN 500 MG TAB (TYLENOL) PO PRN (16:30)
[2016-09-09] MEDS ORDERED: clonazePAM 0.5 MG (KlonoPIN) TAB PO PRN (16:30)
[2016-09-09] MEDS ORDERED: RT-ALBUTEROL/IPRATROPIUM 3 ML (DUONEB) VIAL IH PRN (16:30)
[2016-09-09] MEDS: BACLOFEN 10 MG (LIORESAL) TAB PO PRN (16:54)
[2016-09-09] MEDS: IBUPROFEN TABLET 200 MG TAB PO PRN (16:55)
[2016-09-09] MEDS: methylPREDNISolone 40 MG/ML (Solu-MEDROL) VIAL IV SCH ×2 (18:43→23:51)
[2016-09-09] MEDS ORDERED: lisINopril 20 MG (ZESTRIL) TAB PO NR (19:00)
[2016-09-09] MEDS: RT-ALBUTEROL SULF 2.5 MG/3 ML PRE-MIX VIAL IH PRN (19:36)
[2016-09-09] MEDS ORDERED: meTOproloL SUCCINATE 50 MG (TOPROL XL) TAB PO NR (20:15)
[2016-09-09] MEDS ORDERED: BACLOFEN 10 MG (LIORESAL) TAB PO SCH (21:00)
[2016-09-09] MEDS ORDERED: SERTRALINE 100 MG (ZOLOFT) TAB PO SCH (21:00)
[2016-09-09] MEDS ORDERED: LORATADINE (CLARITIN) 10 MG TAB PO SCH (21:00)
[2016-09-09] MEDS ORDERED: FLUTICASONE NASAL SPRAY (FLONASE) 16 GM BTL NS SCH (21:00)
[2016-09-09] MEDS ORDERED: NON-FORMULARY MEDICATION 1 EA EA (Cetirizine HCl 10 MG) PO SCH (21:00)
[2016-09-09] MEDS ORDERED: MOMETASONE FUROATE NSEACH SCH (21:00)
[2016-09-09] MEDS ORDERED: MONTELUKAST 10 MG (SINGULAIR) TAB PO SCH (21:00)
[2016-09-09] MEDS ORDERED: clonazePAM 0.5 MG (KlonoPIN) TAB PO SCH (21:00)
[2016-09-09] MEDS ORDERED: RT-epiNEPHrine (RACEMIC) 2.25% 0.5 ML VIAL INH ONE (22:00)
[2016-09-10] MEDS: NS W/KCL 20 MEQ/L 1,000 ML IV SCH (03:15)
[2016-09-10 03:50] VITALS: BP 108/78
[2016-09-10] MEDS: methylPREDNISolone 40 MG/ML (Solu-MEDROL) VIAL IV SCH (05:46)
[2016-09-10] MEDS: inSUlin (REGULAR) HUMAN 1 UNIT/0.01 ML (CHARGE PER UNIT) SC SCH (05:46)
[2016-09-10 07:18] VITALS: BP 116/82
[2016-09-10] MEDS: RT-ALBUTEROL/IPRATROPIUM 3 ML (DUONEB) VIAL IH SCH (07:27)
--- NOTE | 2016-09-10 07:36 | Pulmonary Consultation ---
History of Present Illness History of Present Illness Date of Consultation 09/10/16 07:31 Date of Admission History of Present Illness 36yo with hx of asthma and multiple exacerbations requiring hospitalization. Pt is known to my office and was actually scheduled to see me this week. Upon ED arrival she was wheezing /diminished bilaterally and SOB. No f/ns/c. I am consulted for pulmonary management. T Allergies and Home Medications Allergies Coded Allergies: diazepam (Unverified Allergy, Intermediate, rash, 01/03/15) codeine (Unverified Adverse Reaction, Intermediate, HEART PALPATATIONS, ) Home Medications Acetaminophen 500 Mg Tablet, 1,000 MG PO DAILY PRN for PAIN-MILD, (Reported) TAKES 2 (500 MG) TABLETS / ALTERNATES WITH IBUPROFEN Baclofen 10 Mg Tab, 10 MG PO TID PRN for MUSCLE SPASMS, (Reported) Baclofen 10 Mg Tablet, 10 MG PO HS, (Reported) Cetirizine HCl 10 Mg Tablet, 10 MG PO HS, (Reported) Clonazepam 0.5 Mg Tablet, 0.5 MG PO HS, (Reported) Clonazepam 0.5 Mg Tablet, 0.5 MG PO TID PRN for ANXIETY, (Reported) Ibuprofen 200 Mg Tablet, 400 MG PO Q8H PRN for PAIN-MILD, (Reported) TAKES 2 (200 MG) TABLETS / ALTERNATES WITH ACETAMINOPHEN Ipratropium/Albuterol Sulfate 3 Ml Ampul.neb, 3 ML IH QID PRN for SHORTNESS OF BREATH, (Reported) Mometasone Furoate 17 Gm Naspr, 2 SPRAYS NSEACH BID, (Reported) Montelukast Sodium 10 Mg Tablet, 10 MG PO HS, (Reported) LAST FILLED 07/13/16 #30 Sertraline HCl 100 Mg Tablet, 50 MG PO HS, (Reported) TAKES 1/2 OF A (100 MG) TABLET Past Lcskxdv-Taedke-Leamhc Hx Patient Social History Alcohol Use: Denies Use Recreational Drug Use: No Smoking Status: Never a Smoker 2nd Hand Smoke Exposure: Yes Recent Foreign Travel: No Contact w/Someone Who Travel: No Recent Infectious Disease Expo: No Recent Hopitalizations: No Physical Abuse Screen: No Sexual Abuse: No Immunizations Up To Date Tetanus Booster (TDap): Less than 5yrs PED Vaccines UTD: No Date of Pneumonia Vaccine: May 27, 2011 Date of Influenza Vaccine: Nov 28, 2014 Seasonal Allergies Seasonal Allergies: Yes Surgeries HX Surgeries: Yes (LEFT ACHILLES TENDON LENGTHENING X 2, LEFT TIBIA FX; HYST/ BSO 06/14/15) Surgeries: Appendectomy, Gallbladder, Hysterectomy, Oophorectomy, Orthopedic, Tubal Ligation Respiratory Hx Respiratory Disorders: Yes ("VOCAL CORD DYSFUNCTION") Respiratory Disorders: Asthma Cardiovascular Hx Cardiac Disorders: No Cardiac Disorders: Heart Murmur Neurological Hx Neurological Disorders: Yes (MIGRAINES WITH TIA SYMPTOMS) Neurological Disorders: Brain Tumor, Cerebral Palsy, Headaches /Migraines Reproductive System : No Hx Reproductive Disorders: No Sexually Transmitted Disease: No HIV/AIDS: No Female 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, Tubal Ligation Genitourinary Hx Genitourinary Disorders: No Gastrointestinal Hx Gastrointestinal Disorders: Yes Gastrointestinal Disorders: Ulcer Musculoskeletal Hx Musculoskeletal Disorders: Yes (CEREBRAL PALSY) Endocrine Hx Endocrine Disorders: Yes ("PRE-DIABETES") Endocrine Disorders: Diabetes, Non-Insulin dep HEENT HX ENT Disorders: Yes ("VOCAL CORD DYSFUNCTION") Hearing Impairment: Denies Cancer Hx Cancer: No Psychosocial Hx Psychiatric Problems: Yes Behavioral Health Disorders: Anxiety, Depression Integumentary HX Skin/Integumentary Disorder: No Blood Transfusions Hx Blood Disorders: No Adverse Reaction to a Blood Tr: No (has not ever had a transfusion) Family Medical History Significant Family History: Asthma, Cancer, Diabetes, Hypertension Family Medial History: Cancer 19 FATHER, Onset:60 years & older (Colon cancer) G8 SISTER, Onset:15's - ([id number]) G8 SISTER, Onset:15's - (Cervical cancer) Cancer of colon 19 FATHER, Onset:60 years & older Cataract 19 FATHER, Onset:60 years & older 19 MOTHER, Onset:40's - 50 Family history: Arthritis 19 MOTHER, Onset:25's - 30 Family history: Asthma G8 SISTER, Onset:40's - 50 Family history: Cardiovascular disease 19 MOTHER, Onset:50's - 60 Family history: Diabetes mellitus 19 FATHER, Onset:60 years & older 19 MOTHER, Onset:40's - 50 G8 SISTER, Onset:15's - 20 Family history: Hypertension 19 FATHER, Onset:40's - 50 19 MOTHER, Onset:50's - 60 Hypercholesterolemia 19 FATHER, Onset:50's - 60 19 MOTHER, Onset:50's - 60 No Family History of: Abdominal aortic aneurysm Raymond's disease Alcoholism Aphasia Chest pain Congenital heart disease Congestive heart failure Cystic fibrosis Dementia Dysphagia Family history: Allergy Family history: Alzheimer's disease Family history: Breast disease Family history: Coronary thrombosis Family history: Gastrointestinal disease Family history: Glaucoma Family history: Osteoporosis Family history: Thyroid disorder Headache Hearing loss Heart disease Hereditary disease History of - anemia History of - disorder History of - respiratory disease History of drug abuse Human immunodeficiency virus (HIV) seropositivity Infertile Kidney disease Malignant neoplasm of lung Myocardial infarction Not obtainable due to adoption Parkinson's disease Prostate cancer Psychotic disorder Seizure disorder Stroke Tuberculosis Visual impairment Exam Exam Vital Signs Date Time Temp Pulse Resp B/P (MAP) Pulse Ox O2 Delivery O2 Flow Rate FiO2 09/10/16 07:27 95 Nasal Cannula 2.00 09/10/16 07:18 97.4 73 20 116/82 95 Nasal Cannula 2.00 09/10/16 03:50 96.2 87 20 108/78 96 Nasal Cannula 2.00 09/10/16 01:00 98 09/09/16 23:57 98.1 102 22 129/84 97 Nasal Cannula 2.00 09/09/16 22:09 98 Nasal Cannula 2.00 09/09/16 21:41 97 Nasal Cannula 2.00 09/09/16 20:05 98.7 122 26 165/92 98 Nasal Cannula 2.00 09/09/16 20:05 Nasal Cannula 2.00 09/09/16 19:36 98 Nasal Cannula 2.00 09/09/16 19:00 106 09/09/16 16:07 118 22 158/103 96 Nasal Cannula 2.00 09/09/16 15:36 101 22 154/105 96 Nasal Cannula 2.00 09/09/16 15:07 104 147/96 94 Nasal Cannula 2.00 09/09/16 14:07 107 155/100 96 Room Air 09/09/16 14:07 107 22 155/100 98 Room Air 09/09/16 13:56 99 Nasal Cannula 2.00 09/09/16 13:40 93 09/09/16 13:07 90 22 141/95 99 Room Air 2.00 09/09/16 13:07 90 141/95 Room Air 09/09/16 13:00 Nasal Cannula 2.00 09/09/16 12:45 98.7 98 32 154/102 100 Room Air 09/09/16 12:33 82 18 98 Room Air 09/09/16 11:23 98 Nasal Cannula 3.00 09/09/16 10:35 100 Nasal Cannula 3.00 09/09/16 10:20 97.6 113 30 157/90 98 Room Air I & O 09/10/16 07:00 Intake Total 4070 ml Output Total 2900 ml Balance 1170 ml General Appearance: No Apparent Distress, Anxious HEENT: PERRL/EOMI, Pharynx Normal Neck: Normal Inspection, Non Tender, Supple Respiratory: Decreased Breath Sounds Cardiovascular: No Edema, No Gallop, Normal Peripheral Pulses Capillary Refill: Less Than 3 Seconds Gastrointestinal: non tender, soft Extremity: Normal Capillary Refill, Normal Range of Motion, Non Tender Neurologic/Psychiatric: Alert, Oriented x3 Skin: Normal Color, Warm/Dry Lymphatic: No Adenopathy Results Lab Laboratory Tests 09/09/16 10:25 Assessment/Plan Assessment/Plan -asthma AE -SVNS -solumedrol -advair allergic rhinitis -add singulair, claritin, and flonase 254 Clinical Quality Measures DVT/VTE Risk/Contraindication: Risk Factor Score Per Nursin RFS Level Per Nursing on Admit: 3=High GUILLE DELANEY DO Sep 10, 2016 07:36
[2016-09-10] MEDS: BACLOFEN 10 MG (LIORESAL) TAB PO PRN (08:40)
[2016-09-10] MEDS: IBUPROFEN TABLET 200 MG TAB PO PRN (08:40)
[2016-09-10] MEDS ORDERED: FLUTICASONE NASAL SPRAY (FLONASE) 16 GM BTL NS SCH (09:00)
[2016-09-10] MEDS ORDERED: LORATADINE (CLARITIN) 10 MG TAB PO SCH (09:00)
[2016-09-10] MEDS ORDERED: predniSONE 10 MG TAB PO SCH (09:00)
--- NOTE | 2016-09-10 09:01 | Pulmonary Progress Note ---
Subjective Subjective/Events-last exam PT feels much improved c/w yesterday. Exam Exam Vital Signs Date Time Temp Pulse Resp B/P (MAP) Pulse Ox O2 Delivery O2 Flow Rate FiO2 09/10/16 07:27 95 Nasal Cannula 2.00 09/10/16 07:18 97.4 73 20 116/82 95 Nasal Cannula 2.00 09/10/16 03:50 96.2 87 20 108/78 96 Nasal Cannula 2.00 09/10/16 01:00 98 09/09/16 23:57 98.1 102 22 129/84 97 Nasal Cannula 2.00 09/09/16 22:09 98 Nasal Cannula 2.00 09/09/16 21:41 97 Nasal Cannula 2.00 09/09/16 20:05 98.7 122 26 165/92 98 Nasal Cannula 2.00 09/09/16 20:05 Nasal Cannula 2.00 09/09/16 19:36 98 Nasal Cannula 2.00 09/09/16 19:00 106 09/09/16 16:07 118 22 158/103 96 Nasal Cannula 2.00 09/09/16 15:36 101 22 154/105 96 Nasal Cannula 2.00 09/09/16 15:07 104 147/96 94 Nasal Cannula 2.00 09/09/16 14:07 107 155/100 96 Room Air 09/09/16 14:07 107 22 155/100 98 Room Air 09/09/16 13:56 99 Nasal Cannula 2.00 09/09/16 13:40 93 09/09/16 13:07 90 22 141/95 99 Room Air 2.00 09/09/16 13:07 90 141/95 Room Air 09/09/16 13:00 Nasal Cannula 2.00 09/09/16 12:45 98.7 98 32 154/102 100 Room Air 09/09/16 12:33 82 18 98 Room Air 09/09/16 11:23 98 Nasal Cannula 3.00 09/09/16 10:35 100 Nasal Cannula 3.00 09/09/16 10:20 97.6 113 30 157/90 98 Room Air I & O 09/10/16 07:00 Intake Total 4070 ml Output Total 2900 ml Balance 1170 ml General Appearance: No Apparent Distress, Anxious HEENT: PERRL/EOMI, Pharynx Normal Neck: Normal Inspection, Non Tender, Supple Respiratory: Decreased Breath Sounds Cardiovascular: No Edema, No Gallop, Normal Peripheral Pulses Capillary Refill: Less Than 3 Seconds Gastrointestinal: non tender, soft Extremity: Normal Capillary Refill, Normal Range of Motion, Non Tender Neurologic/Psychiatric: Alert, Oriented x3 Skin: Normal Color, Warm/Dry Lymphatic: No Adenopathy Results Lab Laboratory Tests 09/09/16 10:25 Assessment/Plan Assessment/Plan -asthma AE -- much improved today -SVNS -solumedrol -- change to prednisone taper -advair allergic rhinitis -add singulair, claritin, and flonase Pt feels much improved. She would like to go home today. I am ok with discharge from pulmonary standpoint. I will have her f/u with me in 4-6 wks. 232 Clinical Quality Measures DVT/VTE Risk/Contraindication: Risk Factor Score Per Nursin RFS Level Per Nursing on Admit: 3=High GUILLE DELANEY DO Sep 10, 2016 09:01
[2016-09-10] MEDS: RT-ALBUTEROL SULF 2.5 MG/3 ML PRE-MIX VIAL IH PRN (10:34)
--- NOTE | 2016-09-10 10:39 | Short Stay Summary ---
HPI History of Present Illness: 36yo woman with history of severe asthma and laryngeal spasms presented to ER yesterday with complaints of increasing shortness of breath over the past few days. Pt states she was around a lot of tobacco smoke over the weekend which caused a minor exacerbation. She has been using her nebs q4h since then. She was making some progress but then sprayed an air freshener on the day of admission which further exacerbated her asthma. She began having chest tightness and trouble breathing and so came to ER. Denies sputum production, hemoptysis, fever/chills. Source: patient Exam Limitations: no limitations Date seen by provider: Sep 10, 2016 Time Seen by Provider: 09:00 Attending Physician Elizabet Vela MD PCP Farhad,[facility] Denis Alvarado DO Date of Admission Sep 09, 2016 at 12:21 Home Medications Home Medications Reviewed patient Home Medication Reconciliation Form Allergies Coded Allergies: diazepam (Unverified Allergy, Intermediate, rash, 01/03/15) codeine (Unverified Adverse Reaction, Intermediate, HEART PALPATATIONS, ) SKZ-[id number] Hx Patient Social History Alcohol Use: Denies Use Recreational Drug Use: No Smoking Status: Never a Smoker 2nd Hand Smoke Exposure: Yes Recent Foreign Travel: No Contact w/other who traveled: No Recent Hopitalizations: No Recent Infectious Disease Expo: No Physical Abuse Screen: No Sexual Abuse: No Immunizations Up To Date Tetanus Booster (TDap): Less than 5yrs Date of Pneumonia Vaccine: May 27, 2011 Date of Influenza Vaccine: Nov 28, 2014 Past Medical History Past medical history 1. Asthma 2. Cerebral palsy 3. Lumbar and cervical disc disease 4. Depression 5. Migraine headaches Past surgical history 1. Cholecystectomy 2. Appendectomy 3. Tubal ligation 4. Tendon lengthening of left ankle Family Medical History Significant Family History: Asthma, Cancer, Diabetes, Hypertension Family History: Cancer 19 FATHER, Onset:60 years & older (Colon cancer) G8 SISTER, Onset:15's - 20 (Msgd2ih) G8 SISTER, Onset:15's - 20 (Cervical cancer) Cancer of colon 19 FATHER, Onset:60 years & older Cataract 19 FATHER, Onset:60 years & older 19 MOTHER, Onset:40's - 50 Family history: Arthritis 19 MOTHER, Onset:25's - 30 Family history: Asthma G8 SISTER, Onset:40's - 50 Family history: Cardiovascular disease 19 MOTHER, Onset:50's - 60 Family history: Diabetes mellitus 19 FATHER, Onset:60 years & older 19 MOTHER, Onset:40's - 50 G8 SISTER, Onset:15's - 20 Family history: Hypertension 19 FATHER, Onset:40's - 50 19 MOTHER, Onset:50's - 60 Hypercholesterolemia 19 FATHER, Onset:50's - 60 19 MOTHER, Onset:50's - 60 No Family History of: Abdominal aortic aneurysm Windsor's disease Alcoholism Aphasia Chest pain Congenital heart disease Congestive heart failure Cystic fibrosis Dementia Dysphagia Family history: Allergy Family history: Alzheimer's disease Family history: Breast disease Family history: Coronary thrombosis Family history: Gastrointestinal disease Family history: Glaucoma Family history: Osteoporosis Family history: Thyroid disorder Headache Hearing loss Heart disease Hereditary disease History of - anemia History of - disorder History of - respiratory disease History of drug abuse Human immunodeficiency virus (HIV) seropositivity Infertile Kidney disease Malignant neoplasm of lung Myocardial infarction Not obtainable due to adoption Parkinson's disease Prostate cancer Psychotic disorder Seizure disorder Stroke Tuberculosis Visual impairment Review of Systems (CHC) Time Seen by Provider: 09:00 Constitutional: no symptoms reported All Other Systems Reviewed Negative Unless Noted: Yes (Negative excepted noted.) Reviewed Test Results Reviewed Test Results Lab Laboratory Tests Test 09/09/16 10:25 09/09/16 14:39 09/09/16 19:35 09/10/16 05:38 Range/Units White Blood Count 11.0 4.3-11.0 10^3/uL Red Blood Count 5.03 4.35-5.85 10^6/uL Hemoglobin 14.6 11.5-16.0 G/DL Hematocrit 42 35-52 % Mean Corpuscular Volume 84 80-99 FL Mean Corpuscular Hemoglobin 29 25-34 PG Mean Corpuscular Hemoglobin Concent 35 32-36 G/DL Red Cell Distribution Width 12.6 10.0-14.5 % Platelet Count 191 130-400 10^3/uL Mean Platelet Volume 11.3 H 7.4-10.4 FL Neutrophils (%) (Auto) 61 42-75 % Lymphocytes (%) (Auto) 32 12-44 % Monocytes (%) (Auto) 4 0-12 % Eosinophils (%) (Auto) 2 0-10 % Basophils (%) (Auto) 0 0-10 % Neutrophils # (Auto) 6.7 1.8-7.8 X 10^3 Lymphocytes # (Auto) 3.5 1.0-4.0 X 10^3 Monocytes # (Auto) 0.5 0.0-1.0 X 10^3 Eosinophils # (Auto) 0.3 0.0-0.3 10^3/uL Basophils # (Auto) 0.0 0.0-0.1 10^3/uL Sodium Level 139 135-145 MMOL/L Potassium Level 3.4 L 3.6-5.0 MMOL/L Chloride Level 106 98-107 MMOL/L Carbon Dioxide Level 22 21-32 MMOL/L Anion Gap 11 5-14 MMOL/L Blood Urea Nitrogen 6 L 7-18 MG/DL Creatinine 0.78 0.60-1.30 MG/DL Estimat Glomerular Filtration Rate > 60 BUN/Creatinine Ratio 8 0-20 Glucose Level 192 H 70-105 MG/DL Calcium Level 9.8 8.5-10.1 MG/DL Glucometer 204 H 241 H 222 H 70-110 MG/DL Radiology Date of Exam: 09/09/16 CHEST 1 VIEW, AP/PA ONLY EXAMINATION: Portable upright radiograph of the chest. INDICATION: Shortness of breath. FINDINGS: The lungs are clear. The heart size is normal. No effusion or pneumothorax. The mediastinum and eric appear unremarkable. IMPRESSION: Unremarkable exam. Physical Exam-(CHC) Physical Exam Vital Signs VS - Last 72 Hours, by Label 09/09/16 09/09/16 09/09/16 09/09/16 10:20 10:35 11:23 12:33 Temp 97.6 Pulse 113 82 Resp 30 18 B/P (MAP) 157/90 Pulse Ox 98 100 98 98 O2 Delivery Room Air Nasal Cannula Nasal Cannula Room Air O2 Flow Rate 3.00 3.00 09/09/16 09/09/16 09/09/16 09/09/16 12:45 13:00 13:07 13:07 Temp 98.7 Pulse 98 90 90 Resp 32 22 B/P (MAP) 154/102 141/95 141/95 Pulse Ox 100 99 O2 Delivery Room Air Nasal Cannula Room Air Room Air O2 Flow Rate 2.00 2.00 09/09/16 09/09/16 09/09/16 09/09/16 13:40 13:56 14:07 14:07 Pulse 93 107 107 Resp 22 B/P (MAP) 155/100 155/100 Pulse Ox 99 98 96 O2 Delivery Nasal Cannula Room Air Room Air O2 Flow Rate 2.00 09/09/16 09/09/16 09/09/16 09/09/16 15:07 15:36 16:07 19:00 Pulse 104 101 118 106 Resp B/P (MAP) 147/96 154/105 158/103 Pulse Ox 94 96 96 O2 Delivery Nasal Cannula Nasal Cannula Nasal Cannula O2 Flow Rate 2.00 2.00 2.00 09/09/16 09/09/16 09/09/16 09/09/16 19:36 20:05 20:05 21:41 Temp 98.7 Pulse 122 Resp 26 B/P (MAP) 165/92 Pulse Ox 98 98 97 O2 Delivery Nasal Cannula Nasal Cannula Nasal Cannula Nasal Cannula O2 Flow Rate 2.00 2.00 2.00 2.00 09/09/16 09/09/16 09/10/16 09/10/16 22:09 23:57 01:00 03:50 Temp 98.1 96.2 Pulse 102 98 87 Resp 20 B/P (MAP) 129/84 108/78 Pulse Ox 98 97 96 O2 Delivery Nasal Cannula Nasal Cannula Nasal Cannula O2 Flow Rate 2.00 2.00 2.00 09/10/16 09/10/16 09/10/16 09/10/16 07:18 07:27 08:04 09:21 Temp 97.4 Pulse 73 101 Resp 20 B/P (MAP) 116/82 Pulse Ox 95 95 O2 Delivery Nasal Cannula Nasal Cannula Nasal Cannula O2 Flow Rate 2.00 2.00 2.00 Capillary Refill : Less Than 3 Seconds General Appearance: WD/WN, no apparent distress HEENT: PERRL/EOMI, normal ENT inspection, pharynx normal Neck: non-tender, full range of motion, supple, normal inspection Respiratory: chest non-tender, lungs clear, normal breath sounds, no respiratory distress, no accessory muscle use Cardiovascular: regular rate, rhythm, no edema, no gallop, no JVD, no murmur Gastrointestinal: normal bowel sounds, non tender, soft, no organomegaly Extremities: normal range of motion, non-tender, normal inspection, no pedal edema, no calf tenderness, normal capillary refill 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 Will DC on prednisone, no abx as this was not a severe exacerbation and this does not appear to have a bacterial component. Pt agreeable. Will arrrange follow up wt Dr Sparrow and Dr Alvarado as an outpatient. LARYNGEAL SPASM Pt complained of a laryngeal spasm yesterday no improved by benzos. Did improve with racemic epi treatment, no futher issues occurred during hospitalization. Clinical Quality Measures DVT/VTE Risk/Contraindication: Risk Factor Score Per Nursin RFS Level Per Nursing on Admit: 3=High Copy Copies To 1: LEVI SPARROW MD, JULIE A MD Sep 10, 2016 10:39
[2016-09-10] MEDS ORDERED: PRD20T PO (10:49)
--- NOTE | 2016-09-10 10:56 | Discharge Instructions ---
Discharge [facility] Discharge Medications New, Converted or Re-Newed RX: Transmitted to Pharmacy New Medications: Prednisone (Prednisone) 20 Mg Tab 40 MG PO DAILY, #10 TAB 0 Refills Continued Medications: Acetaminophen (Acetaminophen) 500 Mg Tablet 1000 MG PO DAILY PRN for PAIN-MILD, TAB TAKES 2 (500 MG) TABLETS / ALTERNATES WITH IBUPROFEN Baclofen (Lioresal Tablet) 10 Mg Tab 10 MG PO TID PRN for MUSCLE SPASMS Baclofen (Baclofen) 10 Mg Tablet 10 MG PO HS Cetirizine HCl (Cetirizine HCl) 10 Mg Tablet 10 MG PO HS Clonazepam (Clonazepam) 0.5 Mg Tablet 0.5 MG PO HS Clonazepam (Clonazepam) 0.5 Mg Tablet 0.5 MG PO TID PRN for ANXIETY, TAB Ibuprofen (Ibuprofen) 200 Mg Tablet 400 MG PO Q8H PRN for PAIN-MILD, TAB TAKES 2 (200 MG) TABLETS / ALTERNATES WITH ACETAMINOPHEN Ipratropium/Albuterol Sulfate (Iprat-Albut 0.5-3(2.5) mg/3 ml) 3 Ml Ampul.neb 3 ML IH QID PRN for SHORTNESS OF BREATH Mometasone Furoate (Nasonex) 17 Gm Naspr 2 SPRAYS NSEACH BID, EA Montelukast Sodium (Montelukast Sodium) 10 Mg Tablet 10 MG PO HS LAST FILLED 07/13/16 #30 Sertraline HCl (Sertraline HCl) 100 Mg Tablet 50 MG PO HS TAKES 1/2 OF A (100 MG) TABLET Patient Instructions Goal/Follow Up Appt: Dr Sparrow September 16 at 1:40 Dr Alvarado's office will call you to schedule another appointment. Patient Instructions: Please take all medications as prescribed. Return to The Hospital For: Please call Dr Alvarado's office or [facility] if your shortness of breath returns. If you have symptoms of shortness of breath or difficulty breathing, you may call our after-hours provider or go to ER. Activity & Diet Discharge Diet: No Restrictions Copy Copies To 1: LEVI SPARROW MD, JULIE A MD Sep 10, 2016 10:56
[2016-09-10 11:34] VITALS: BP 116/82
[2016-09-10] MEDS ORDERED: MONTELUKAST 10 MG (SINGULAIR) TAB PO SCH (21:00)
== END 2016-09-10 10:50 | disposition home or self-care (01) ==
LOC: EDUNIT# 10:17 → ER 10:19 → 4TH 12:21 → UNDOADMOB 12:21 → 4TH 12:45 → UNDODISOB 09-10 11:40
PROVIDERS: ADMIT Pediatrics; ATTEND Pediatrics
DX: J45.901 Unspecified asthma with (acute) exacerbation (principal); F41.9 Anxiety disorder, unspecified
CPT/HCPCS: 36415; 71010; 80048; 82962; 85025; 93041; 94640; 94664; 94760; 99211; G0378

== ENCOUNTER → 2016-10-13 | Outpatient (CLI) | payer MEDICAID ==
[~2016-10-13] MED LIST changes: +ACET-93 PO; +CETI10TA17 PO; +CLON0.5T3 PO; +IBUP-2055 PO; +IPRA3AMP IH
--- NOTE | 2016-10-13 15:15 | Diagnostic Imaging Report ---
PA and lateral views of the chest Indication: Cough and congestion Findings: The lungs are clear. The heart size is normal. There is no effusion or pneumothorax The mediastinum and eric appear unremarkable. Impression: Unremarkable study. Dictated by: Dictated on workstation # [id number]
== END ==
LOC: RAD 14:53
PROVIDERS: ATTEND Nurse Practitioner Family
DX: R06.00 Dyspnea, unspecified (principal); J45.998 Other asthma
CPT/HCPCS: 71020

== ENCOUNTER 2017-03-16 13:06 | Emergency (ER) | payer MEDICAID ==
[~2017-03-16] VITALS: Ht 160 cm; Wt 78.7 kg
[2017-03-16] MEDS ORDERED: NS IV 1000 ML 1,000 ML IV ONE (13:25)
[2017-03-16] MEDS ORDERED: diphenhydrAMINE 50 MG/ML INJ (BENADRYL) IVP ONE (13:30)
[2017-03-16] MEDS ORDERED: PROMETHAZINE INJ 25 MG/ML (PHENERGAN) AMP IVP ONE (13:30)
[2017-03-16] MEDS ORDERED: KETOROLAC 30 MG/ML VIAL IVP ONE (13:30)
[2017-03-16 13:34] LABS: BILIRUBIN,URINE NEGATIVE (NEGATIVE); KETONES,URINE NEGATIVE (NEGATIVE); LEUKOCYTE ESTERASE ,URINE NEGATIVE (NEGATIVE); NITRITE,URINE NEGATIVE (NEGATIVE); PH,URINE 7 (5-9); PROTEIN,URINE NEGATIVE (NEGATIVE); UROBILINOGEN,URINE NORMAL (NORMAL)
[2017-03-16 13:41] LABS: BASOPHILS % (AUTO) 0 % (0-10); EOSINOPHILS # (AUTO) 0.3 10^3/uL (0.0-0.3); EOSINOPHILS % (AUTO) 2 % (0-10); LYMPHOCYTES # (AUTO) 3.9 X 10^3 (1.0-4.0); LYMPHOCYTES % (AUTO) 33 % (12-44); MEAN CORPUSCULAR HEMOGLOBIN 29 PG (25-34); MEAN CORPUSCULAR HGB CONC 35 G/DL (32-36); MEAN CORPUSCULAR VOLUME 83 FL (80-99); MEAN PLATELET VOLUME 11.1 FL (7.4-10.4); MONOCYTES # (AUTO) 0.6 X 10^3 (0.0-1.0); MONOCYTES % (AUTO) 5 % (0-12); NEUTROPHILS % (AUTO) 59 % (42-75); PLATELET COUNT 195 10^3/uL (130-400); RED BLOOD COUNT 4.96 10^6/uL (4.35-5.85); RED CELL DISTRIBUTION WIDTH 12.9 % (10.0-14.5); WHITE BLOOD COUNT 11.9 10^3/uL (4.3-11.0)
--- NOTE | 2017-03-16 13:51 | ED Headache ---
General Chief Complaint: Head/Cervical Problems Stated Complaint: NAUSEA,VOMIT,STIFF NECK,HEADACHE Nursing Triage Note: PT STATES HEADACHE, N/V FOR ABOUT 3 DAYS. HX OF MIGRAINES. Nursing Sepsis Screen: No Definite Risk Source: patient Exam Limitations: no limitations History of Present Illness Time seen by provider: 13:08 Initial Comments This 36-year-old woman presents to the emergency room with primary complaint of headache. This headache started on March 13 and has persisted until today. It started as a normal migraine but now seems to be more intense at the base of the school and in the neck. She has done her usual treatments including ibuprofen, baclofen, and Klonopin. Headache has not improved. She reports temperatures up to 100.0 at home. She has had nausea, vomiting, and diarrhea. Her last ibuprofen was a few hours ago. She is afebrile at present. Allergies and Home Medications Allergies Coded Allergies: diazepam (Unverified Allergy, Intermediate, rash, 01/03/15) codeine (Unverified Adverse Reaction, Intermediate, HEART PALPATATIONS, ) Home Medications Acetaminophen 500 Mg Tablet, 1,000 MG PO DAILY PRN for PAIN-MILD, (Reported) TAKES 2 (500 MG) TABLETS / ALTERNATES WITH IBUPROFEN Baclofen 10 Mg Tab, 10 MG PO TID PRN for MUSCLE SPASMS, (Reported) Baclofen 10 Mg Tablet, 10 MG PO HS, (Reported) Cetirizine HCl 10 Mg Tablet, 10 MG PO HS, (Reported) Clonazepam 0.5 Mg Tablet, 0.5 MG PO HS, (Reported) Clonazepam 0.5 Mg Tablet, 0.5 MG PO TID PRN for ANXIETY, (Reported) Ibuprofen 200 Mg Tablet, 400 MG PO Q8H PRN for PAIN-MILD, (Reported) TAKES 2 (200 MG) TABLETS / ALTERNATES WITH ACETAMINOPHEN Ipratropium/Albuterol Sulfate 3 Ml Ampul.neb, 3 ML IH QID PRN for SHORTNESS OF BREATH, (Reported) Mometasone Furoate 17 Gm Naspr, 2 SPRAYS NSEACH BID, (Reported) Montelukast Sodium 10 Mg Tablet, 10 MG PO HS, (Reported) LAST FILLED 07/13/16 #30 Prednisone 20 Mg Tab, 40 MG PO DAILY, #10 Ref 0 Prescribed by: WILLIS AGUILAR on 09/10/16 1049 Promethazine HCl 25 Mg Tablet, 25 MG PO Q6H PRN for NAUSEA/VOMITING, #10 Prescribed by: DERRICK ALVARADO on 03/16/17 1425 Sertraline HCl 100 Mg Tablet, 50 MG PO HS, (Reported) TAKES 1/2 OF A (100 MG) TABLET Constitutional: see HPI Eyes: No Symptoms Reported Ears, Nose, Mouth, Throat: no symptoms reported Respiratory: no symptoms reported Cardiovascular: no symptoms reported Gastrointestinal: see HPI Genitourinary: no symptoms reported Musculoskeletal: see HPI Skin: no symptoms reported Psychiatric/Neurological: See HPI Past [id number] Hx Patient Social History Alcohol Use: Rarely Uses Alcohol Beverage of Choice: Wine Recreational Drug Use: No Smoking Status: Never a Smoker 2nd Hand Smoke Exposure: Yes Recent Foreign Travel: No Contact w/Someone Who Travel: No Recent Infectious Disease Expo: No Recent Hopitalizations: Yes (02/13 ALLERGIC RXN) Immunizations Up To Date Tetanus Booster (TDap): Less than 5yrs PED Vaccines UTD: No Date of Pneumonia Vaccine: May 27, 2011 Date of Influenza Vaccine: Dec 31, 2016 Seasonal Allergies Seasonal Allergies: Yes Surgeries History of Surgeries: Yes (LEFT ACHILLES TENDON LENGTHENING X 2, LEFT TIBIA FX ; HYST/BSO 06/14/15) Surgeries: Appendectomy, Gallbladder, Hysterectomy, Orthopedic, Tubal Ligation Respiratory History of Respiratory Disorde: Yes ("VOCAL CORD DYSFUNCTION") Respiratory Disorders: Asthma Cardiovascular History of Cardiac Disorders: Yes (history of htn resolved-pt states) Cardiac Disorders: Heart Murmur Neurological History of Neurological Disord: Yes (MIGRAINES WITH TIA SYMPTOMS) Neurological Disorders: Brain Tumor, Cerebral Palsy, Headaches /Migraines Reproductive System Hx Reproductive Disorders: No Sexually Transmitted Disease: No HIV/AIDS: No Female Reproductive Disorders: Denies ASSOCIATE SOFTWARE DEVELOPER History: Hysterectomy, Tubal Ligation Genitourinary History of Genitourinary Disor: No Gastrointestinal History of Gastrointestinal Di: Yes Gastrointestinal Disorders: Ulcer Musculoskeletal History of Musculoskeletal Dis: Yes (CEREBRAL PALSY left side affected) Endocrine History of Endocrine Disorders: Yes Endocrine Disorders: Diabetes, Non-Insulin dep HEENT History of HEENT Disorders: No Hearing Impairment: Denies Cancer History of Cancer: No Psychosocial History of Psychiatric Problem: Yes Behavioral Health Disorders: Anxiety, Depression Integumentary History of Skin or Integumenta: No Blood Transfusions History of Blood Disorders: No Adverse Reaction to a Blood Tr: No (has not ever had a transfusion) Family Medical History Significant Family History: Asthma, Cancer, Diabetes, Hypertension Family Medial History: Cancer 19 FATHER, Onset:60 years & older (Colon cancer) G8 SISTER, Onset:15's - 20 ([id number]) G8 SISTER, Onset:15's - (Cervical cancer) Cancer of colon 19 FATHER, Onset:60 years & older Cataract 19 FATHER, Onset:60 years & older 19 MOTHER, Onset:40's - 50 Family history: Arthritis 19 MOTHER, Onset:25's - 30 Family history: Asthma G8 SISTER, Onset:40's - 50 Family history: Cardiovascular disease 19 MOTHER, Onset:50's - 60 Family history: Diabetes mellitus 19 FATHER, Onset:60 years & older 19 MOTHER, Onset:40's - 50 G8 SISTER, Onset:15's - 20 Family history: Hypertension 19 FATHER, Onset:40's - 50 19 MOTHER, Onset:50's - 60 Hypercholesterolemia 19 FATHER, Onset:50's - 60 19 MOTHER, Onset:50's - 60 No Family History of: Abdominal aortic aneurysm Raymond's disease Alcoholism Aphasia Chest pain Congenital heart disease Congestive heart failure Cystic fibrosis Dementia Dysphagia Family history: Allergy Family history: Alzheimer's disease Family history: Breast disease Family history: Coronary thrombosis Family history: Gastrointestinal disease Family history: Glaucoma Family history: Osteoporosis Family history: Thyroid disorder Headache Hearing loss Heart disease Hereditary disease History of - anemia History of - disorder History of - respiratory disease History of drug abuse Human immunodeficiency virus (HIV) seropositivity Infertile Kidney disease Malignant neoplasm of lung Myocardial infarction Not obtainable due to adoption Parkinson's disease Prostate cancer Psychotic disorder Seizure disorder Stroke Tuberculosis Visual impairment Physical Exam Vital Signs Vital Sign - Last 12Hours 03/16/ 13:17 Temp 98.0 Pulse 81 Resp 20 B/P (MAP) 138/101 (113) Pulse Ox 97 O2 Delivery Room Air Capillary Refill : Less Than 3 Seconds General Appearance: WD/WN, no apparent distress HEENT: PERRL/EOMI, normal ENT inspection Neck: normal inspection Cardiovascular: regular rate, rhythm, no edema, no murmur Respiratory: lungs clear, normal breath sounds, no respiratory distress, no accessory muscle use Gastrointestinal: normal bowel sounds, soft, tenderness (minimal tenderness in the left lower quadrant) Extremities: normal inspection, no pedal edema Psychiatric: alert, oriented x 3 Crainal Nerves: normal hearing, normal speech, PERRL Motor/Sensory: no motor deficit, no sensory deficit Skin: normal color, warm/dry Progress/Results/Core Measures Results/Orders Lab Results Laboratory Tests Test 03/16/17 13:17 03/16/17 13:35 Range/Units Urine Color YELLOW Urine Clarity SLIGHTLY CLOUDY Urine pH 7 5-9 Urine Specific [place] 1.005 L 1.016-1.022 Urine Protein NEGATIVE NEGATIVE Urine Glucose (UA) NEGATIVE NEGATIVE Urine Ketones NEGATIVE NEGATIVE Urine Nitrite NEGATIVE NEGATIVE Urine Bilirubin NEGATIVE NEGATIVE Urine Urobilinogen NORMAL NORMAL MG/DL Urine Leukocyte Esterase NEGATIVE NEGATIVE Urine RBC (Auto) NEGATIVE NEGATIVE Urine RBC NONE /HPF Urine WBC NONE /HPF Urine Squamous Epithelial Cells 10-25 H /HPF Urine Crystals NONE /LPF Urine Bacteria NEGATIVE /HPF Urine Casts NONE /LPF Urine Mucus NEGATIVE /LPF Urine Culture Indicated NO White Blood Count 11.9 H 4.3-11.0 10^3/uL Red Blood Count 4.96 4.35-5.85 10^6/uL Hemoglobin 14.5 11.5-16.0 G/DL Hematocrit 41 35-52 % Mean Corpuscular Volume 83 80-99 FL Mean Corpuscular Hemoglobin 29 25-34 PG Mean Corpuscular Hemoglobin Concent 35 32-36 G/DL Red Cell Distribution Width 12.9 10.0-14.5 % Platelet Count 195 130-400 10^3/uL Mean Platelet Volume 11.1 H 7.4-10.4 FL Neutrophils (%) (Auto) 59 42-75 % Lymphocytes (%) (Auto) 33 12-44 % Monocytes (%) (Auto) 5 0-12 % Eosinophils (%) (Auto) 2 0-10 % Basophils (%) (Auto) 0 0-10 % Neutrophils # (Auto) 7.0 1.8-7.8 X 10^3 Lymphocytes # (Auto) 3.9 1.0-4.0 X 10^3 Monocytes # (Auto) 0.6 0.0-1.0 X 10^3 Eosinophils # (Auto) 0.3 0.0-0.3 10^3/uL Basophils # (Auto) 0.0 0.0-0.1 10^3/uL Sodium Level 140 135-145 MMOL/L Potassium Level 3.7 3.6-5.0 MMOL/L Chloride Level 106 98-107 MMOL/L Carbon Dioxide Level 27 21-32 MMOL/L Anion Gap 7 5-14 MMOL/L Blood Urea Nitrogen 4 L 7-18 MG/DL Creatinine 0.67 0.60-1.30 MG/DL Estimat Glomerular Filtration Rate > 60 BUN/Creatinine Ratio 6 Glucose Level 98 70-105 MG/DL Calcium Level 9.3 8.5-10.1 MG/DL Magnesium Level 2.0 1.8-2.4 MG/DL My Orders Orders - DERRICK TRIANA MD Basic Metabolic Panel (03/16/17 13:25) Cbc With Automated Diff (03/16/17 13:25) Magnesium (03/16/17 13:25) Ua Culture If Indicated (03/16/17 13:25) Saline Lock/Iv-Start (03/16/17 13:25) Saline Lock/Iv-Start (03/16/17 13:25) Ns Iv 1000 Ml (Sodium Chloride 0.9%) (03/16/17 13:25) Promethazine Injection (Phenergan Injec (03/16/17 13:30) Diphenhydramine Injection (Benadryl Inje (03/16/17 13:30) Ketorolac Injection (Toradol Injection) (03/16/17 13:30) Methylprednisolone Sod Succ (Solu-Medrol (03/16/17 14:30) Medications Given in ED Current Medications Medications Dose Ordered Sig/Ca Route Start Time Stop Time Status Last Admin Dose Admin Diphenhydramine HCl 25 mg ONCE ONCE IVP 03/16/17 13:30 03/16/17 13:31 DC 03/16/17 13:42 25 MG Ketorolac Tromethamine 30 mg ONCE ONCE IVP 03/16/17 13:30 03/16/17 13:31 DC 03/16/17 13:41 30 MG Promethazine HCl 25 mg ONCE ONCE IVP 03/16/17 13:30 03/16/17 13:31 DC 03/16/17 13:41 25 MG Sodium Chloride 1,000 ml @ 0 mls/hr Q0M ONCE IV 03/16/17 13:25 03/16/17 13:28 DC 03/16/17 13:51 1,000 MLS/HR Vital Signs/I&O Vital Sign - Last 12Hours 03/16/17 13:17 Temp 98.0 Pulse 81 Resp 20 B/P (MAP) 138/101 (113) Pulse Ox 97 O2 Delivery Room Air Blood Pressure Mean: 113 Progress Note : Time: 14:30 Progress Note Patient received Phenergan, Toradol, Benadryl, and IV fluids with acceptable results. She still had some refractory pain but did not want any stronger pain medication. She did receive a Solu-Medrol injection to help prevent rebound headache. Neck muscles were also noted to be rather tense. She was offered Norflex but declined since she already took baclofen at home. Departure Impression Impression: Primary Impression: Tension type headache Qualified Codes: G44.209 - Tension-type headache, unspecified, not intractable Additional Impression: Nausea vomiting and diarrhea Disposition: 01 HOME, SELF-CARE Condition: Improved Departure-Patient Inst. Decision time for Depature: 14:23 Referrals: GREG PALACIO DO (PCP) Primary Care Physician DONNIE BENITO (Family) Primary Care Physician Patient Instructions: Tension Headache (DC) Add. Discharge Instructions: This evening you may resume ibuprofen up to 600 mg every 6 hours as needed for pain. Add Tylenol (acetaminophen) up to 1000 mg every 6 hours as needed for additional pain relief. Use your other prescription medications as previously directed. Drink plenty of clear liquids. Gradually advance your diet with small quantities of bland food as tolerated. Rest for the remainder of the night and a quiet, calm, dark environment. Return to care if symptoms worsen. All discharge instructions reviewed with patient and/or family. Voiced understanding. Scripts Promethazine HCl (Promethazine Tablet) 25 Mg Tablet 25 MG PO Q6H Y for NAUSEA/VOMITING, #10 TAB Prov: DERRICK TRIANA MD 03/16/17 DERRICK TRIANA MD Mar 16, 2017 13:51
[2017-03-16 14:01] LABS: ANION GAP 7 MMOL/L (5-14); BLOOD UREA NITROGEN 4 MG/DL (7-18); BUN/CREATININE RATIO 6; CALCIUM 9.3 MG/DL (8.5-10.1); CARBON DIOXIDE 27 MMOL/L (21-32); CHLORIDE 106 MMOL/L (98-107); CREATININE SERUM 0.67 MG/DL (0.60-1.30); GFR ESTIMATED > 60; GLUCOSE 98 MG/DL (70-105); POTASSIUM 3.7 MMOL/L (3.6-5.0); SODIUM 140 MMOL/L (135-145)
[2017-03-16] MEDS ORDERED: PROM25TA14 PO (14:25)
[2017-03-16] MEDS ORDERED: methylPREDNISolone 125 MG (Solu-MEDROL) VIAL IVP ONE (14:30)
[2017-03-16 14:41] VITALS: BP 162/88
== END 2017-03-16 14:41 | disposition home or self-care (01) ==
LOC: EDUNIT# 13:06 → ER 13:08
DX: G44.209 Tension-type headache, unspecified, not intractable (principal); R11.2 Nausea with vomiting, unspecified; R19.7 Diarrhea, unspecified; J45.909 Unspecified asthma, uncomplicated; E11.9 Type 2 diabetes mellitus without complications; F41.9 Anxiety disorder, unspecified; F32.9 Major depressive disorder, single episode, unspecified; Z86.018 Personal history of other benign neoplasm; Z86.73 Personal history of transient ischemic attack (TIA), and cerebral infarction without residual deficits; Z77.22 Contact with and (suspected) exposure to environmental tobacco smoke (acute) (chronic); Z90.710 Acquired absence of both cervix and uterus; Z80.0 Family history of malignant neoplasm of digestive organs; Z80.49 Family history of malignant neoplasm of other genital organs; Z82.49 Family history of ischemic heart disease and other diseases of the circulatory system; Z90.49 Acquired absence of other specified parts of digestive tract; Z98.51 Tubal ligation status; Z87.19 Personal history of other diseases of the digestive system
CPT/HCPCS: 36415; 80048; 81000; 83735; 85025; 96361; 96374; 96375

== ENCOUNTER 2017-06-21 15:08 | Emergency (ER) | payer BC, MEDICAID ==
[~2017-06-21] VITALS: Ht 160 cm; Wt 78.0 kg
[~2017-06-21 15:08] MED LIST changes: +HYDR-34 PO; -HYDR-3816 PO; +PROM25TA14 PO
[2017-06-21 18:05] LABS: BILIRUBIN,URINE NEGATIVE (NEGATIVE); CLARITY,URINE CLEAR; COLOR,URINE YELLOW; GLUCOSE, URINE (UA) NEGATIVE (NEGATIVE); KETONES,URINE NEGATIVE (NEGATIVE); LEUKOCYTE ESTERASE ,URINE 1+ (NEGATIVE); NITRITE,URINE POSITIVE (NEGATIVE); PH,URINE 8 (5-9); PROTEIN,URINE NEGATIVE (NEGATIVE); UROBILINOGEN,URINE NORMAL (NORMAL)
[2017-06-21 18:12] LABS: BACTERIA,URINE LARGE /HPF; RBC,URINE 0-2 /HPF; SQUAMOUS EPITHELIAL CELL,UR 25-50 /HPF
[2017-06-21] MEDS ORDERED: ORPHENADRINE 60 MG/2 ML (NORFLEX) AMP IM STA (18:19)
[2017-06-21] MEDS ORDERED: KETOROLAC 60 MG/2 ML VIAL IM STA (18:19)
--- NOTE | 2017-06-21 18:23 | ED Back Pain ---
General Chief Complaint: Back Problems Stated Complaint: LOWER BACK PAIN,LEGS WEAK Nursing Triage Note: PT CO OF BACK PAIN STATES STOOD UP AND BACK STARTED HURTING AND LEG BECAME WEAK.HAS HX CHRONIC BACK PAIN Nursing Sepsis Screen: No Definite Risk Source of Information: Patient Exam Limitations: No Limitations History of Present Illness Date Seen by Provider: Jun 21, 2017 Time Seen by Provider: 18:23 Allergies and Home Medications Allergies Coded Allergies: diazepam (Unverified Allergy, Intermediate, rash, 01/03/15) codeine (Unverified Adverse Reaction, Intermediate, HEART PALPATATIONS, ) Home Medications Acetaminophen 500 Mg Tablet, 1,000 MG PO DAILY PRN for PAIN-MILD, (Reported) TAKES 2 (500 MG) TABLETS / ALTERNATES WITH IBUPROFEN Baclofen 10 Mg Tab, 10 MG PO TID PRN for MUSCLE SPASMS, (Reported) Baclofen 10 Mg Tablet, 10 MG PO HS, (Reported) Cetirizine HCl 10 Mg Tablet, 10 MG PO HS, (Reported) Clonazepam 0.5 Mg Tablet, 0.5 MG PO HS, (Reported) Clonazepam 0.5 Mg Tablet, 0.5 MG PO TID PRN for ANXIETY, (Reported) Ibuprofen 200 Mg Tablet, 400 MG PO Q8H PRN for PAIN-MILD, (Reported) TAKES 2 (200 MG) TABLETS / ALTERNATES WITH ACETAMINOPHEN Ipratropium/Albuterol Sulfate 3 Ml Ampul.neb, 3 ML IH QID PRN for SHORTNESS OF BREATH, (Reported) Mometasone Furoate 17 Gm Naspr, 2 SPRAYS NSEACH BID, (Reported) Montelukast Sodium 10 Mg Tablet, 10 MG PO HS, (Reported) LAST FILLED 07/13/16 #30 Prednisone 20 Mg Tab, 40 MG PO DAILY Prescribed by: WILLIS AGUILAR on 09/10/16 1049 Prednisone 20 Mg Tab, 40 MG PO DAILY Prescribed by: RUY NICHOLSON on 06/21/17 1920 Promethazine HCl 25 Mg Tablet, 25 MG PO Q6H PRN for NAUSEA/VOMITING Prescribed by: DERRICK ALVARADO on 03/16/17 1425 Sertraline HCl 100 Mg Tablet, 50 MG PO HS, (Reported) TAKES 1/2 OF A (100 MG) TABLET Past [id number] Hx Patient Social History Alcohol Use: Rarely Uses Number of Drinks Today: HH Alcohol Beverage of Choice: Wine Recreational Drug Use: No Smoking Status: Never a Smoker 2nd Hand Smoke Exposure: Yes Recent Foreign Travel: No Contact w/Someone Who Travel: No Recent Infectious Disease Expo: No Recent Hopitalizations: Yes (02/13 ALLERGIC RXN) Physical Abuse: No Sexual Abuse: No Immunizations Up To Date Tetanus Booster (TDap): Less than 5yrs PED Vaccines UTD: No Date of Pneumonia Vaccine: May 27, 2011 Date of Influenza Vaccine: Dec 31, 2016 Seasonal Allergies Seasonal Allergies: Yes Surgeries History of Surgeries: Yes (LEFT ACHILLES TENDON LENGTHENING X 2, LEFT TIBIA FX ; HYST/BSO 06/14/15) Surgeries: Appendectomy, Gallbladder, Hysterectomy, Orthopedic, Tubal Ligation Respiratory History of Respiratory Disorde: Yes ("VOCAL CORD DYSFUNCTION") Respiratory Disorders: Asthma Cardiovascular History of Cardiac Disorders: Yes (history of htn resolved-pt states) Cardiac Disorders: Heart Murmur Neurological History of Neurological Disord: Yes (MIGRAINES WITH TIA SYMPTOMS) Neurological Disorders: Brain Tumor, Cerebral Palsy, Headaches /Migraines Reproductive System Hx Reproductive Disorders: No Sexually Transmitted Disease: No HIV/AIDS: No Female Reproductive Disorders: Denies [employer] History: Hysterectomy, Tubal Ligation Genitourinary History of Genitourinary Disor: No Gastrointestinal History of Gastrointestinal Di: Yes Gastrointestinal Disorders: Ulcer Musculoskeletal History of Musculoskeletal Dis: Yes (CEREBRAL PALSY left side affected) Endocrine History of Endocrine Disorders: Yes Endocrine Disorders: Diabetes, Non-Insulin dep HEENT History of HEENT Disorders: No Hearing Impairment: Denies Cancer History of Cancer: No Psychosocial History of Psychiatric Problem: Yes Behavioral Health Disorders: Anxiety, Depression Suicide Risk Score: 0 Integumentary History of Skin or Integumenta: No Blood Transfusions History of Blood Disorders: No Adverse Reaction to a Blood Tr: No (has not ever had a transfusion) Family Medical History Significant Family History: Asthma, Cancer, Diabetes, Hypertension Family Medial History: Cancer 19 FATHER, Onset:60 years & older (Colon cancer) G8 SISTER, Onset:15's - 20 ([id number]) G8 SISTER, Onset:15's - 20 (Cervical cancer) Cancer of colon 19 FATHER, Onset:60 years & older Cataract 19 FATHER, Onset:60 years & older 19 MOTHER, Onset:40's - 50 Family history: Arthritis 19 MOTHER, Onset:25's - 30 Family history: Asthma G8 SISTER, Onset:40's - 50 Family history: Cardiovascular disease 19 MOTHER, Onset:50's - 60 Family history: Diabetes mellitus 19 FATHER, Onset:60 years & older 19 MOTHER, Onset:40's - 50 G8 SISTER, Onset:15's - 20 Family history: Hypertension 19 FATHER, Onset:40's - 50 19 MOTHER, Onset:50's - 60 Hypercholesterolemia 19 FATHER, Onset:50's - 60 19 MOTHER, Onset:50's - 60 No Family History of: Abdominal aortic aneurysm Elk's disease Alcoholism Aphasia Chest pain Congenital heart disease Congestive heart failure Cystic fibrosis Dementia Dysphagia Family history: Allergy Family history: Alzheimer's disease Family history: Breast disease Family history: Coronary thrombosis Family history: Gastrointestinal disease Family history: Glaucoma Family history: Osteoporosis Family history: Thyroid disorder Headache Hearing loss Heart disease Hereditary disease History of - anemia History of - disorder History of - respiratory disease History of drug abuse Human immunodeficiency virus (HIV) seropositivity Infertile Kidney disease Malignant neoplasm of lung Myocardial infarction Not obtainable due to adoption Parkinson's disease Prostate cancer Psychotic disorder Seizure disorder Stroke Tuberculosis Visual impairment Physical Exam Vital Signs Vital Signs - First Documented 06/21/17 16:22 Temp 97.2 Pulse 77 Resp 18 B/P (MAP) 150/112 (125) Pulse Ox 99 Capillary Refill : Less Than 3 Seconds Progress/Results/Core Measures Results/Orders Lab Results Laboratory Tests Test 06/21/17 17:59 Range/Units Urine Color YELLOW Urine Clarity CLEAR Urine pH 8 5-9 Urine Specific [place] 1.010 L 1.016-1.022 Urine Protein NEGATIVE NEGATIVE Urine Glucose (UA) NEGATIVE NEGATIVE Urine Ketones NEGATIVE NEGATIVE Urine Nitrite POSITIVE H NEGATIVE Urine Bilirubin NEGATIVE NEGATIVE Urine Urobilinogen NORMAL NORMAL MG/DL Urine Leukocyte Esterase 1+ H NEGATIVE Urine RBC (Auto) NEGATIVE NEGATIVE Urine RBC 0-2 /HPF Urine WBC 10-25 H /HPF Urine Squamous Epithelial Cells 25-50 H /HPF Urine Crystals NONE /LPF Urine Bacteria LARGE H /HPF Urine Casts NONE /LPF Urine Mucus NEGATIVE /LPF Urine Culture Indicated YES Urine Opiates Screen NEGATIVE NEGATIVE Urine Oxycodone Screen NEGATIVE NEGATIVE Urine Methadone Screen NEGATIVE NEGATIVE Urine Propoxyphene Screen NEGATIVE NEGATIVE Urine Barbiturates Screen NEGATIVE NEGATIVE Ur Tricyclic Antidepressants Screen NEGATIVE NEGATIVE Urine Phencyclidine Screen NEGATIVE NEGATIVE Urine Amphetamines Screen NEGATIVE NEGATIVE Urine Methamphetamines Screen NEGATIVE NEGATIVE Urine Benzodiazepines Screen NEGATIVE NEGATIVE Urine Cocaine Screen NEGATIVE NEGATIVE Urine Cannabinoids Screen NEGATIVE NEGATIVE My Orders Orders - RUY NICHOLSON Ketorolac Injection (Toradol Injection) (06/21/17 18:19) Orphenadrine Injection (Norflex Injectio (06/21/17 18:19) Ct Lumbar Spine Wo (06/21/17 18:19) Vital Signs/I&O Vital Sign - Last 12Hours 06/21/17 16:22 Temp 97.2 Pulse 77 Resp 18 B/P (MAP) 150/112 (125) Pulse Ox 99 Blood Pressure Mean: 125 Departure Impression Impression: Primary Impression: Lumbar radiculopathy Additional Impression: Urinary tract infection Disposition: HOME, SELF-CARE Condition: Improved Departure-Patient Inst. Decision time for Depature: 19:01 Referrals: GREG PALACIO DO (PCP) Primary Care Physician DONNIE BENITO (Family) Primary Care Physician Patient Instructions: Radiculopathy (DC), Urinary Tract Infection, Adult (DC) Add. Discharge Instructions: All discharge instructions reviewed with patient and/or family. Voiced understanding. Medications as instructed. Tylenol Extra Strength over-the- counter as directed for pain. Ibuprofen 800 mg by mouth every 8 hours as needed for pain. Ice packs or heating pads as needed. Avoid heavy lifting, pushing, pulling, twisting, bending, climbing 7 days. Follow-up with your family practitioner for recheck as an outpatient. They may want to do an MRI as an outpatient on the low back if symptoms persist. Return to the emergency department for worsened symptoms, numbness of the genital area, bowel incontinence, bladder incontinence, or any other concerns. Scripts Nitrofurantoin Monohyd/M-Cryst (Macrobid 100 mg Capsule) 100 Mg Capsule 1 TAB PO BID, #14 CAP 0 Refills Prov: RUY NICHOLSON 06/21/17 Phenazopyridine HCl (Pyridium) 200 Mg Tablet 1 TAB PO Q8H Y for SPASMS, #14 TAB 0 Refills Prov: RUY NICHOLSON 06/21/17 Prednisone (Prednisone) 20 Mg Tab 40 MG PO DAILY, #10 TAB 0 Refills Prov: RUY NICHOLSON 06/21/17 Work/School Note: Work Release Form Date Seen in the Emergency Department: Jun 21, 2017 Return to Work: Jun 23, 2017 RUY NICHOLSON Jun 21, 2017 18:23
[2017-06-21 18:33] LABS: AMPHETAMINE SCREEN, URINE NEGATIVE (NEGATIVE); BARBITURATE SCREEN URINE NEGATIVE (NEGATIVE); BENZODIAZEPINES SCREEN URINE NEGATIVE (NEGATIVE); CANNABINOID SCREEN, URINE NEGATIVE (NEGATIVE); COCAINE SCREEN URINE NEGATIVE (NEGATIVE); METHADONE STAT NEGATIVE (NEGATIVE); METHAMPHETAMINE SCREEN URINE S NEGATIVE (NEGATIVE); OPIATE SCREEN URINE NEGATIVE (NEGATIVE); OXYCODONE STAT NEGATIVE (NEGATIVE); PROPOXYPHENE STAT NEGATIVE (NEGATIVE); TRICYCLIC ANTIDEPRESSANTS SCRE NEGATIVE (NEGATIVE)
--- NOTE | 2017-06-21 18:52 | Diagnostic Imaging Report ---
PROCEDURE: CT lumbar spine without contrast. TECHNIQUE: Multiple contiguous axial images were obtained through the lumbar spine without the use of intravenous contrast. Sagittal and coronal reformations were then performed. INDICATION: Chronic back pain. FINDINGS: The alignment is normal. Vertebral body heights are well maintained. There is no spondylolysis or spondylolisthesis. No fractures are identified. There is no bony encroachment upon the spinal canal. There are no focal soft tissue abnormalities. IMPRESSION: Unremarkable CT lumbar spine. Dictated by: Dictated on workstation # [id number]
[2017-06-21] MEDS ORDERED: PRD20T PO (19:20)
[2017-06-21] MEDS ORDERED: PHEN-640 PO (19:34)
[2017-06-21] MEDS ORDERED: NITR-65 PO (19:34)
[2017-06-21] MEDS ORDERED: RX-NITROFURANTOIN 100 MG (MACROBID) CAP PPK#2 PO STA (19:35)
[2017-06-21 19:42] VITALS: BP 142/88
== END 2017-06-21 19:45 | disposition home or self-care (01) ==
LOC: EDUNIT# 15:08 → ER 15:09
DX: M54.16 Radiculopathy, lumbar region (principal); N39.0 Urinary tract infection, site not specified; J44.9 Chronic obstructive pulmonary disease, unspecified; I10 Essential (primary) hypertension; G43.909 Migraine, unspecified, not intractable, without status migrainosus; G80.9 Cerebral palsy, unspecified; Z87.19 Personal history of other diseases of the digestive system; Z80.0 Family history of malignant neoplasm of digestive organs; Z82.49 Family history of ischemic heart disease and other diseases of the circulatory system; Z86.73 Personal history of transient ischemic attack (TIA), and cerebral infarction without residual deficits; Z88.5 Allergy status to narcotic agent; Z88.8 Allergy status to other drugs, medicaments and biological substances; Z79.52 Long term (current) use of systemic steroids; Z90.49 Acquired absence of other specified parts of digestive tract; Z90.710 Acquired absence of both cervix and uterus; Z98.51 Tubal ligation status
CPT/HCPCS: 72131; 80306; 81000; 87077; 87088; 87186; 96372